=== PATIENT | male | born 1945 | race Caucasian/White ===

== ENCOUNTER 2018-10-30 21:59 | Inpatient (IN) | payer BC, OTHER ==
[2018-10-30] MEDS ORDERED: NA CHLORIDE 0.9% 1,000 ML ONE (22:56)
[2018-10-30] MEDS ORDERED: MORPHINE 4 MG/ML SYR ONE (22:56)
[2018-10-30] MEDS ORDERED: ONDANSETRON 4 MG/2 ML VIAL ONE (22:56)
[2018-10-31] MEDS ORDERED: FENTANYL CITR 100 MCG/2 ML ONE (01:13)
--- NOTE | 2018-10-31 02:07 | ER ---
Nurse's Notes [facility] Name: Trino Joseph Age: 72 yrs Sex: Male : 1945 Arrival Date: 10/30/2018 Time: 22:01 Bed 24 Private MD: Diagnosis: Comminuted intertrochanteric fracture of the proximal right femur Presentation: 10/30 22:10 Presenting complaint: Patient states: He was trying to move something out of the bed of aj1 his truck from the ground and it was heavier than expected so when it came out of the bed it pulled him down to ground, Patient landed on his right hip and has had severe pain and been unable to move his leg since then. Transition of care: patient was not received from another setting of care. Onset of symptoms was October 30, 2018 at 20:30. Risk Assessment: Do you want to hurt yourself or someone else? Patient reports no desire to harm self or others. Initial Sepsis Screen: Does the patient meet any 2 criteria? No. Patient's initial sepsis screen is negative. Does the patient have a suspected source of infection? No. Patient's initial sepsis screen is negative. Care prior to arrival: None. 22:10 Method Of Arrival: Wheelchair aj1 22:10 Acuity: BORIS 3 aj1 23:18 Mechanism of Injury: Fall from standing position. Trauma event details: Injury occurred mg2 in the [facility]. Triage Assessment: 22:13 General: Appears uncomfortable, Behavior is cooperative, restless. Pain: Complains of aj1 pain in right hip Pain currently is 8 out of 10 on a pain scale. Neuro: Level of Consciousness is awake, alert, obeys commands, Oriented to person, place, time, situation. Cardiovascular: Patient's skin is warm and dry. Respiratory: Airway is patent Respiratory effort is even, unlabored, Respiratory pattern is regular, symmetrical. Trauma Activation: Alert Physician: ED Physician; Name: Ish; Notified At: 22:11; Arrived At: 22:11 Physician: General Surgeon; Name: ; Notified At: 22:11; Arrived At: Physician: Radiology; Name: Nilsa Cowart Aracelli; Notified At: 22:11; Arrived At: 22:13 Physician: Respiratory; Name: ; Notified At: 22:11; Arrived At: Physician: Lab; Name: ; Notified At: 22:11; Arrived At: Historical: - Allergies: 22:13 No Known Allergies; aj1 - Home Meds: 22:13 None [Active]; aj1 - PMHx: 22:13 None; aj1 - PSHx: 22:13 pins in spine; elbow surgery; aj1 - Immunization history:: Flu vaccine is not up to date. - Social history:: Smoking status: Patient/guardian denies using tobacco. - Immunization history: Last tetanus immunization: unknown. - Ebola Screening: : Patient denies travel to an Ebola-affected area in the 21 days before illness onset. Screenin:14 Abuse screen: Denies threats or abuse. Denies injuries from another. Nutritional mg2 screening: No deficits noted. Tuberculosis screening: No symptoms or risk factors identified. Fall Risk Fall in past 12 months (25 points). Primary Survey: 23:15 NO uncontrolled hemorrhage observed. A: The patient is alert. A: Airway: patent. mg2 Breathing/Chest: Respiratory pattern: regular, Respiratory effort: spontaneous, unlabored, Breath sounds: clear, bilaterally. in mediastinum, right upper lobe, left upper lobe, right middle lobe, left lower lobe and right lower lobe. Circulation: Skin color: pink. Disability Alert. Exposure/Environment: All clothing and personal items were removed. Forensic evidence collection is not deemed to be indicated at this time. Items placed in patient belonging bag. There is no evidence of uncontrolled external bleeding. No obvious injuries are noted at this time. A warming method has been applied: A warm blanket has been provided to the patient. 10/31 00:10 Reassessment Airway Airway Breathing/Chest Respiratory pattern Regular Respiratory la1 effort Spontaneous Unlabored Circulation Pulses Palpable Color [place] Temperature Warm Disability Alert. 00:54 A: The patient is alert. Airway: patent. Breathing/Chest: Respiratory pattern: regular, la1 Respiratory effort: spontaneous, unlabored, Breath sounds: clear, bilaterally. Circulation: Skin color: pink. Disability Alert. Exposure/Environment: A warming method has been applied: A warm blanket has been provided to the patient. 01:17 Reassessment Airway Airway Breathing/Chest Respiratory pattern Regular Respiratory la1 effort Spontaneous Unlabored Circulation Pulses Palpable Color [place] Temperature Warm Disability Alert. Secondary Survey: 00:10 Musculoskeletal: Reports pain in right hip with severe pain with weight bearing. la1 Assessment: 10/30 22:16 General: Appears uncomfortable, Behavior is anxious. Pain: Complains of pain in right mg2 hip Pain does not radiate. Pain currently is 10 out of 10 on a pain scale. Quality of pain is described as aching. Neuro: Level of Consciousness is awake, alert, obeys commands, Oriented to person, place, time, situation. Cardiovascular: Capillary refill < 3 seconds Patient's skin is warm and dry. Respiratory: Airway is patent Respiratory effort is even, unlabored, Respiratory pattern is regular, symmetrical. GI: No signs and/or symptoms were reported involving the gastrointestinal system. : No signs and/or symptoms were reported regarding the genitourinary system. EENT: No signs and/or symptoms were reported regarding the EENT system. Derm: Skin is intact, is healthy with good turgor, Skin is pink, warm \T\ dry. normal. Musculoskeletal: Circulation, motion, and sensation intact. Capillary refill < 3 seconds, Reports pain in right hip. 23:19 Reassessment: patient sent to [facility] via stretcher. mg2 10/31 03:01 Reassessment: Patient and/or family updated on plan of care and expected duration. Pain bb level reassessed. pt resting quietly states the last pain medication given really worked and his pain is 2/10 at this time. Pt was instructed by EDP on need for admit and surgery for fractured right hip pt verbalized understanding of and agrees to plan of care. Pt is awaiting room assignment. 03:20 Reassessment: report given to Etta ADORNO for room 206. bb Vital Signs: 10/30 22:13 BP 189 / 86; Pulse 56; Resp 28; Pulse Ox 100% on R/A; Weight 111.58 kg (R); Height 6 aj1 ft. 1 in. (185.42 cm) (R); Pain 8/10; 23:04 Temp 98.6(TE); mg2 23:15 BP 134 / 79; Pulse 67; Resp 18; Pulse Ox 100% on R/A; Pain 7/10; mg2 10/31 00:15 BP 136 / 74; Pulse 58; Resp 16; Pulse Ox 98% on R/A; la1 01:11 BP 131 / 82; Pulse 74; Resp 16; Pulse Ox 98% on R/A; la1 02:00 BP 156 / 78; Pulse 71; Resp 16 S; Pulse Ox 96% on R/A; Pain 1/10; bb 03:01 BP 148 / 79; Pulse 74; Resp 16 S; Pulse Ox 95% on R/A; Pain 2/10; bb 10/30 22:13 Body Mass Index 32.46 (111.58 kg, 185.42 cm) aj1 [place] Coma Score: 10/30 23:18 Eye Response: spontaneous(4). Verbal Response: oriented(5). Motor Response: obeys mg2 commands(6). Total: 15. 10/31 00:15 Eye Response: spontaneous(4). Verbal Response: oriented(5). Motor Response: obeys la1 commands(6). Total: 15. Trauma Score (Adult): 10/30 23:17 Eye Response: spontaneous(1); Verbal Response: oriented(1); Motor Response: obeys mg2 commands(2); Systolic BP: > 89 mm Hg(4); Respiratory Rate: 10 to 29 per min(4); [place] Score: 15; Trauma Score: 12 10/31 01:11 Eye Response: spontaneous(1); Verbal Response: oriented(1); Motor Response: obeys la1 commands(2); Systolic BP: > 89 mm Hg(4); Respiratory Rate: 10 to 29 per min(4); [place] Score: 15; Trauma Score: 12 ED Course: 10/30 22:01 Patient arrived in ED. ds1 22:12 Triage completed. aj1 22:13 Reynold Alvarado, RN is Primary Nurse. mg2 22:13 Arm band placed on Patient placed in an exam room. aj1 22:18 No provider procedures requiring assistance completed. mg2 22:19 Patient has correct armband on for positive identification. Pulse ox on. NIBP on. Door mg2 closed. Warm blanket given. 22:45 Hakan Deng MD is Attending Physician. pkl 23:04 Inserted saline lock: 20 gauge in right antecubital area, using aseptic technique. mg2 Blood collected. 23:18 Patient maintains SpO2 saturation greater than 95% on room air. Thermoregulation: warm mg2 blanket given to patient. 10/31 00:34 Hip Right 2 View XRAY In Process Unspecified. EDMS 00:34 Femur Right XRAY In Process Unspecified. EDMS 00:34 XRAY CXR (1 view) In Process Unspecified. EDMS 01:01 CT completed. Patient tolerated procedure well. Patient moved to CT. Patient moved back from CT. 01:15 Hip Right Wo Con In Process Unspecified. EDMS 02:06 Kenan Olivas DO is Hospitalizing Provider. pkl 03:03 Patient admitted, IV remains in place. bb Administered Medications: 10/30 23:03 Drug: morphine 4 mg Route: IVP; Site: right antecubital; mg2 10/31 00:11 Follow up: Response: RASS: Alert and Calm (0) la1 10/30 23:03 Drug: Zofran 4 mg Route: IVP; Site: right antecubital; mg2 10/31 00:11 Follow up: Response: No adverse reaction la1 10/30 23:04 Drug: NS 0.9% 1000 ml Route: IV; Rate: 125 ml/hr; Site: right antecubital; mg2 10/31 03:09 Follow up: IV Status: Infusion continued upon admission bb 01:18 Drug: fentaNYL (PF) 50 mcg {Note: RASS-0.} Route: IVP; Site: right antecubital; la1 Intake: 10/30 23:18 PO: 0ml; Total: 0ml. mg2 Outcome: 10/31 02:07 Decision to Hospitalize by Provider. pkl 02:57 Condition: stable bb 02:57 Instructed on the need for admit. 03:03 Admitted to Med/surg accompanied by [facility], via stretcher, room 206, with chart, Report bb called to receiving RN 03:05 Patient's length of stay in the Emergency Department was greater than 2 hours. bb 03:50 Patient left the ED. bb Signatures: Dispatcher [employer] Suzette Archibald, RN RN Hakan Bauer MD MD pkl Hagler, Ervin eh Sanford, Demi ds1 Olga Lidia Oropeza RN RN bb Attema, Lee, RN RN la1 Reynold Alvarado RN RN mg2
--- NOTE | 2018-10-31 02:07 | EDPHYS ---
Physician Documentation [facility] Name: Trino Joseph Age: 72 yrs Sex: Male : 1945 Arrival Date: 10/30/2018 Time: 22:01 Bed 24 Private MD: ED Physician Hakan Deng HPI: 10/30 23:06 This 72 yrs old Male presents to ER via Wheelchair with complaints of Hip pkl Pain. 23:06 The patient or guardian reports decreased range of motion, deformity, an injury, pain, pkl swelling. sustained from a fall, from a standing position. The complaints affect the right hip. Onset: The symptoms/episode began/occurred just prior to arrival. Associated signs and symptoms: Loss of consciousness: the patient experienced loss of consciousness. Historical: - Allergies: 22:13 No Known Allergies; aj1 - Home Meds: 22:13 None [Active]; aj1 - PMHx: 22:13 None; aj1 - PSHx: 22:13 pins in spine; elbow surgery; aj1 - Immunization history:: Flu vaccine is not up to date. - Social history:: Smoking status: Patient/guardian denies using tobacco. - Immunization history: Last tetanus immunization: unknown. - Ebola Screening: : Patient denies travel to an Ebola-affected area in the 21 days before illness onset. ROS: 23:06 Eyes: Negative for injury, pain, redness, and discharge, ENT: Negative for injury, pkl pain, and discharge, Neck: Negative for injury, pain, and swelling, Cardiovascular: Negative for chest pain, palpitations, and edema, Respiratory: Negative for shortness of breath, cough, wheezing, and pleuritic chest pain, Abdomen/GI: Negative for abdominal pain, nausea, vomiting, diarrhea, and constipation, Back: Negative for injury and pain, : Negative for injury, bleeding, discharge, and swelling, Skin: Negative for injury, rash, and discoloration, Neuro: Negative for headache, weakness, numbness, tingling, and seizure. 23:06 MS/extremity: Positive for injury or acute deformity, contusion, pain, tenderness, of the right hip. Exam: 23:06 Head/Face: Normocephalic, atraumatic. Eyes: Pupils equal round and reactive to light, pkl extra-ocular motions intact. Lids and lashes normal. Conjunctiva and sclera are non-icteric and not injected. Cornea within normal limits. Periorbital areas with no swelling, redness, or edema. ENT: Nares patent. No nasal discharge, no septal abnormalities noted. Tympanic membranes are normal and external auditory canals are clear. Oropharynx with no redness, swelling, or masses, exudates, or evidence of obstruction, uvula midline. Mucous membranes moist. Neck: Trachea midline, no thyromegaly or masses palpated, and no cervical lymphadenopathy. Supple, full range of motion without nuchal rigidity, or vertebral point tenderness. No Meningismus. Chest/axilla: Normal chest wall appearance and motion. Nontender with no deformity. No lesions are appreciated. Cardiovascular: Regular rate and rhythm with a normal S1 and S2. No gallops, murmurs, or rubs. Normal PMI, no JVD. No pulse deficits. Respiratory: Lungs have equal breath sounds bilaterally, clear to auscultation and percussion. No rales, rhonchi or wheezes noted. No increased work of breathing, no retractions or nasal flaring. Abdomen/GI: Soft, non-tender, with normal bowel sounds. No distension or tympany. No guarding or rebound. No evidence of tenderness throughout. Back: No spinal tenderness. No costovertebral tenderness. Full range of motion. Skin: Warm, dry with normal turgor. Normal color with no rashes, no lesions, and no evidence of cellulitis. 23:06 Musculoskeletal/extremity: Extremities: grossly normal except: noted in the right hip: decreased ROM, deformity, pain, tenderness. 23:06 Neuro: Orientation: is normal, Mentation: is normal, Cranial nerves: grossly normal, Motor: is normal. Vital Signs: 22:13 BP 189 / 86; Pulse 56; Resp 28; Pulse Ox 100% on R/A; Weight 111.58 kg (R); Height 6 aj1 ft. 1 in. (185.42 cm) (R); Pain 8/10; 23:04 Temp 98.6(TE); mg2 23:15 BP 134 / 79; Pulse 67; Resp 18; Pulse Ox 100% on R/A; Pain 7/10; mg2 08/10 00:15 BP 136 / 74; Pulse 58; Resp 16; Pulse Ox 98% on R/A; la1 01:11 BP 131 / 82; Pulse 74; Resp 16; Pulse Ox 98% on R/A; la1 02:00 BP 156 / 78; Pulse 71; Resp 16 S; Pulse Ox 96% on R/A; Pain 1/10; bb 03:01 BP 148 / 79; Pulse 74; Resp 16 S; Pulse Ox 95% on R/A; Pain 2/10; bb 10/30 22:13 Body Mass Index 32.46 (111.58 kg, 185.42 cm) aj1 [place] Coma Score: 10/30 23:18 Eye Response: spontaneous(4). Verbal Response: oriented(5). Motor Response: obeys mg2 commands(6). Total: 15. 10/31 00:15 Eye Response: spontaneous(4). Verbal Response: oriented(5). Motor Response: obeys la1 commands(6). Total: 15. Trauma Score (Adult): 10/30 23:17 Eye Response: spontaneous(1); Verbal Response: oriented(1); Motor Response: obeys mg2 commands(2); Systolic BP: > 89 mm Hg(4); Respiratory Rate: 10 to 29 per min(4); [place] Score: 15; Trauma Score: 12 10/31 01:11 Eye Response: spontaneous(1); Verbal Response: oriented(1); Motor Response: obeys la1 commands(2); Systolic BP: > 89 mm Hg(4); Respiratory Rate: 10 to 29 per min(4); [place] Score: 15; Trauma Score: 12 MDM: 10/30 22:45 Patient medically screened. pkl 10/31 02:04 Data reviewed: vital signs, nurses notes, lab test result(s), EKG, radiologic studies, pkl CT scan, plain films. 10/31 01:59 Order name: Basic Metabolic Panel pkl 10/31 01:59 Order name: CBC with Diff pkl 10/31 01:59 Order name: LFT's pkl 10/31 01:59 Order name: Magnesium; Complete Time: 03:54 pkl 10/31 01:59 Order name: NT PRO-BNP; Complete Time: 03:54 pkl 10/31 01:59 Order name: PT-INR; Complete Time: 03:18 pkl 10/30 22:49 Order name: Hip Right 2 View XRAY pkl 10/30 22:49 Order name: Femur Right XRAY pkl 10/30 22:49 Order name: XRAY CXR (1 view) pkl 10/31 00:24 Order name: Hip Right Wo Con EDMS 10/31 01:59 Order name: Troponin (emerg Dept Use Only); Complete Time: 03:54 pkl 10/31 02:01 Order name: Basic Metabolic Panel; Complete Time: 03:54 EDMS 10/31 02:01 Order name: CBC with Automated Diff; Complete Time: 03:54 EDMS 10/31 02:01 Order name: Liver (Hepatic) Function; Complete Time: 03:54 EDMS 10/31 01:59 Order name: EKG; Complete Time: 02:02 pkl 10/31 01:59 Order name: Cardiac monitoring; Complete Time: 02:08 pkl 10/31 01:59 Order name: EKG - Nurse/Tech; Complete Time: 02:55 pkl 10/31 01:59 Order name: IV Saline Lock; Complete Time: 02:08 pkl 10/31 01:59 Order name: Labs collected and sent; Complete Time: 02:55 pkl 10/31 01:59 Order name: O2 Per Protocol; Complete Time: 02:08 pkl 10/31 01:59 Order name: O2 Sat Monitoring; Complete Time: 02:08 pkl Administered Medications: 10/30 23:03 Drug: morphine 4 mg Route: IVP; Site: right antecubital; mg2 10/31 00:11 Follow up: Response: RASS: Alert and Calm (0) la1 10/30 23:03 Drug: Zofran 4 mg Route: IVP; Site: right antecubital; mg2 10/31 00:11 Follow up: Response: No adverse reaction la1 10/30 23:04 Drug: NS 0.9% 1000 ml Route: IV; Rate: 125 ml/hr; Site: right antecubital; mg2 10/31 03:09 Follow up: IV Status: Infusion continued upon admission bb 01:18 Drug: fentaNYL (PF) 50 mcg {Note: RASS-0.} Route: IVP; Site: right antecubital; la1 Disposition: 10/31/18 02:07 Hospitalization ordered by Kenan Olivas for Inpatient Admission. Preliminary diagnosis is Comminuted intertrochanteric fracture of the proximal right femur. - Bed requested for Telemetry/MedSurg (Inpatient). - Status is Inpatient Admission. bb - Condition is Stable. - Problem is new. - Symptoms are unchanged. UTI on Admission? No Signatures: Dispatcher [employer] EDSuzette Rausch, RN RN aj1 Hakan Deng MD MD pkl Olga Lidia Oropeza RN RN bb Devin Phillip RN RN la1 Laquita Rodas RN RN Reynold Alvarado RN RN mg2 Corrections: (The following items were deleted from the chart) 02:32 02:07 Hospitalization Ordered by Kenan Olivas DO for Inpatient Admission. Preliminary cg diagnosis is Comminuted intertrochanteric fracture of the proximal right femur. Bed requested for Telemetry/MedSurg (Inpatient). Status is Inpatient Admission. Condition is Stable. Problem is new. Symptoms are unchanged. UTI on Admission? No. pkl 03:50 02:32 10/31/2018 02:07 Hospitalization Ordered by Kenan Olivas DO for Inpatient bb Admission. Preliminary diagnosis is Comminuted intertrochanteric fracture of the proximal right femur. Bed requested for Telemetry/MedSurg (Inpatient). Status is Inpatient Admission. Condition is Stable. Problem is new. Symptoms are unchanged. UTI on Admission? No. cg
--- NOTE | 2018-10-31 02:36 | P.HP ---
Certification for Inpatient Patient admitted to: Inpatient With expected LOS: >2 Midnights Patient will require the following post-hospital care: Home Health Services Practitioner: I am a practitioner with admitting privileges, knowledge of patient current condition, hospital course, and medical plan of care. Services: Services provided to patient in accordance with Admission requirements found in Title 42 Section 412.3 of the Code of Federal Regulations Patient History Date of Service: 10/31/18 Primary Care Provider: Dr. Moya([place], [place]) Reason for admission: Right hip pain History of Present Illness: 72-year-old male presented to the emergency room with right hip pain. The patient was removing a heavy large object out of his truck. When he removed the object off of the truck he did not realize how heavy it was. He was able to get out of the way upon removing the object but fell to the right hip hard on the ground. He immediately had pain to the right hip. He was not able to mobilize after the fall. He rated the pain about 10/10. He was not able to get up. At that point he understood something was wrong. He was brought to the ER for further evaluation. In the ER patient evaluated. CT of the lower extremity showed mild displaced comminuted intertrochanteric proximal right femur fracture. Lab-CBC, BMP, PT INR pending. EKG unremarkable. Patient will be admitted for further evaluation and treatment. ER physician discussed the case with orthopedics who plans surgical intervention today. When I saw the patient ER, he appeared comfortable. Pain better controlled. Patient denies any major medical problems. He does not take any medication on a regular basis. Allergies No Known Allergies Allergy (Unverified 10/31/18 00:15) Home medications list reviewed: No - Past Medical/Surgical History Diabetic: No Past Medical History: Patient denies medical history -: Hernia repair -: Tonsillectomy -: Back surgery -: Left hand and foot surgery Psychosocial/ Personal History: Patient is , lives at home. - Family History Family History: Reviewed- Non-Contributory - Social History Smoking Status: Former smoker Alcohol use: No CD- Drugs: No Caffeine use: Yes Place of Residence: Home Review of Systems General: Unremarkable Eyes: Unremarkable ENT: Unremarkable Respiratory: Unremarkable Cardiovascular: Unremarkable Gastrointestinal: Unremarkable Genitourinary: Unremarkable Musculoskeletal: Leg Pain, As per HPI Integumentary: Unremarkable Neurological: Unremarkable Lymphatics: Unremarkable Physical Examination - Physical Exam General: Alert, In no apparent distress, Oriented x3, Cooperative HEENT: Atraumatic, Normocephalic, PERRLA, Mucous membr. moist/pink Neck: Supple, No Thyromegaly Respiratory: Clear to auscultation bilaterally, Normal air movement Cardiovascular: Normal pulses, Regular rate/rhythm Gastrointestinal: Normal bowel sounds, Soft and benign, Non-distended, No ascites, No tenderness, No masses, No rebound, No guarding Musculoskeletal: No warmth, Tenderness (Pain to the right hip noted. Lower extremity externally rotated. Pulses good distally.) Integumentary: No rashes, No breakdown, No erythema, No warmth, No cyanosis Neurological: Normal speech, Normal strength at 5/5 x4 extr, Normal tone, Normal affect Assessment and Plan - Plan Impression: Mildly displaced comminuted intertrochanteric proximal right femur fracture Plan: Patient be admitted for further evaluation and treatment. ER physician discussed case with orthopedics. Surgical intervention planned today. Lab-CBC , BMP pending at this time. Will hold off on DVT prophylaxis as surgical intervention is planned. Will provide medication for pain. Patient without any major medical problems. Patient appears medically stable to proceed with surgery. Anticipate likely discharge in the next 3-5 days pending clinical improvement postoperatively. Daytime hospital team will continue his care along with orthopedics. Discharge Plan: Home (likely with home health/physical therapy) Plan to discharge in: Greater than 2 days - Advance Directives Does patient have a Living Will: No Does patient have a Durable POA for Healthcare: No - Code Status/Comfort Care Code Status Assessed: Yes (Patient is full code) Time Spent Managing Pts Care (In Minutes): 55
[2018-10-31 03:13] LABS: Protime INR 1.13
[2018-10-31 03:15] LABS: Basophils % 0.2 % (0-1.3)
[2018-10-31 03:24] LABS: Absolute Lymphocytes (CBC) 0.8 K/uL (0.7-4.9); Lymphocytes % 7.5 % (15.3-44.8); RBC Red Blood Cell Count 4.39 M/uL (4.33-5.43)
[2018-10-31 03:36] LABS: ALT/SGPT 36 U/L (12-78); AST/SGOT 21 U/L (15-37); Alkaline Phosphatase 50 U/L (45-117); BUN Blood Urea Nitrogen 10 mg/dL (7-18); Bicarbonate 25 mmol/L (21-32); Bilirubin Direct 0.4 mg/dL (0-0.2); Bilirubin Total 1.2 mg/dL (0.2-1.0); Glucose Level 210 mg/dL (74-106); Magnesium 2.1 mg/dL (1.8-2.4); NT PRO-BNP 144 pg/mL (<125); Potassium 3.9 mmol/L (3.5-5.1); Protein, Total 7.1 g/dL (6.4-8.2); Sodium Level 138 mmol/L (136-145); Troponin (Emerg Dept Use Only) < 0.02 ng/mL (0.0-0.045)
[2018-10-31 03:39] LABS: Urine White Blood Cell Casts OK
[2018-10-31 03:40] LABS: Blood Morphology Comment NOT SEEN (NOT SEEN); Platelet Estimate ADEQ
[2018-10-31] MEDS ORDERED: ACETAMINOPHEN 650MG/RECT SUPP RECT PRN (03:44)
[2018-10-31] MEDS ORDERED: ACETAMINOPHEN 500 MG TAB PO PRN (03:44)
[2018-10-31] MEDS: MORPHINE 2 MG/ML SYR IV PRN ×2 (04:50→09:35)
[2018-10-31] MEDS ORDERED: D50W 25 GM/50 ML SYRINGE IV PRN (06:16)
[2018-10-31] MEDS ORDERED: GLUCAGON 1 MG/VIAL IM PRN (06:16)
[2018-10-31] MEDS: INSULIN -REGULAR HUMAN 50 UNIT/0.5 ML ML SQ SCH ×5 (07:30→21:00)
--- NOTE | 2018-10-31 07:36 | EKG ---
Test Date: 2018-10-31 Test Time: 02:23:55 Finishing Frame Runner: FABBY MEASUREMENT RESULTS: Intervals: Rate: 78 CO: 190 QRSD: 108 QT: 400 QTc: 456 [place]: P: 67 CO: 190 QRS: 15 T: 50 INTERPRETIVE STATEMENTS: Sinus rhythm with premature atrial complexes Otherwise normal ECG No previous ECG available for comparison Electronically Signed On 10-31-18 07:35:58 CDT by Bart Carlson
[2018-10-31] MEDS ORDERED: CEFAZOLIN/SWI 1gm 1 GM/10 ML SYR ONE (10:31)
[2018-10-31] MEDS ORDERED: NA CHLORIDE 0.9% 1,000 ML ONE ×2 (10:34→12:59)
[2018-10-31] MEDS ORDERED: SUCCINYLCHOLINE 20 MG/ML (10 ML) IV ONE (10:40)
[2018-10-31] MEDS ORDERED: PROPOFOL 200 MG/20 ML VIAL IV ONE (10:47)
[2018-10-31] MEDS ORDERED: ROCURONIUM 50 MG/5 ML VIAL IV ONE (10:48)
[2018-10-31] MEDS ORDERED: FENTANYL CITR 250 MCG/5 ML ONE (10:48)
[2018-10-31] MEDS ORDERED: MIDAZOLAM HCL 2 MG/2 ML INJ ONE (10:48)
[2018-10-31] MEDS ORDERED: TRANEXAMIC ACID 1,000 MG in NA CHLORIDE 0.9% 50 ML IV ONE (11:00)
--- NOTE | 2018-10-31 12:26 | RAD REPORT ---
EXAM DESCRIPTION: RAD - Femur Right - 10/31/2018 12:30 am CLINICAL HISTORY: fall Fall, pain COMPARISON: Hip Right 2 View dated 10/30/2018; Hip Right Wo Con dated 10/31/2018 FINDINGS: Right hip and right femur- multiple projections are submitted Intratrochanteric fracture is seen involving the proximal right femur. No dislocation evident.
--- NOTE | 2018-10-31 12:27 | RAD REPORT ---
EXAM DESCRIPTION: RAD - Chest Single View - 10/31/2018 12:30 am CLINICAL HISTORY: fall Chest pain. COMPARISON: No comparisons FINDINGS: Portable technique limits examination quality. The lungs are grossly clear. The heart is normal in size. Tortuous thoracic aorta noted. No displaced fractures. IMPRESSION: No acute intrathoracic process suspected.
[2018-10-31] MEDS ORDERED: GLYCOPYRROLATE 0.2 MG/ML SYR ONE (12:38)
[2018-10-31] MEDS ORDERED: NEOSTIGMINE 1 MG/ML -10 ML VIAL ONE (12:38)
[2018-10-31] MEDS: MEPERIDINE HCL 50 MG/ML AMP ONE ×2 (12:49→12:54)
[2018-10-31] MEDS ORDERED: ONDANSETRON 4 MG/2 ML VIAL ONE (12:57)
--- NOTE | 2018-10-31 13:19 | RAD REPORT ---
EXAM DESCRIPTION: RAD - Hip In Or - 10/31/2018 12:58 pm CLINICAL HISTORY: RIGHT HIP DONE IN OR 4 WITH DOCTOR SANDOVAL COMPARISON: No comparisons FINDINGS: Fluoroscopy time 1.8 minutes.
[2018-10-31] MEDS: HYDROMORPHONE HCL 2 MG/ML inj ONE ×4 (13:21→13:38)
--- NOTE | 2018-10-31 13:21 | P.BOP ---
Preoperative diagnosis: CLOSED, DISPLACED INTERTROCHANTERIC RIGHT HIP FRACTURE Postoperative diagnosis: CLOSED, DISPLACED INTERTROCHANTERIC RIGHT HIP FRACTURE Primary procedure: INSERTION OF IM NAIL RIGHT HIP IT FRACTURE Estimated blood loss: 250mm Specimen: NONE Findings: IT FRACTURE RIGHT HIP Anesthesia: General Complications: None Implants: AFFIXUS 130*30I167pm;LAG SCREW10.5X115;AR [id number];DISTAL SCREW 5.1E178wb Transferred to: Recovery Room Condition: Good
[2018-10-31 13:26] LABS: Hematocrit 39.1 % (39.6-49.0)
[2018-10-31] MEDS ORDERED: HYDROCODONE/APAP 7.5/325 MG TAB PO PRN (13:36)
--- NOTE | 2018-10-31 14:31 | P.CNS ---
Date of Consult: 10/31/18 Reason for Consult: FRACTURE RIGHT HIP Primary Care Provider: Dr. Moya([place], [place]) Chief Complaint: Right hip pain History of Present Illness: PATIENT WRESTLING WITH HEAVY OBJECT IN BACK OF PICKUP WHEN HE FELL BACKWARDS TO IMPACT RIGHT HIP. Allergies No Known Allergies Allergy (Verified 10/31/18 03:45) Home Medications: NK [No Home Meds] 10/31/18 - Past Medical/Surgical History Diabetic: No -: Hernia repair -: Tonsillectomy -: Back surgery -: Left hand and foot surgery Psychosocial/ Personal History: Patient is , lives at home. - Social History Alcohol use: No CD- Drugs: No Caffeine use: Yes Place of Residence: Home Review of Systems 10-point ROS is otherwise unremarkable Physical Examination Temp Pulse Resp BP Pulse Ox 97.4 F 69 16 163/81 H 94 10/31/18 13:39 10/31/18 13:39 10/31/18 13:39 10/31/18 13:39 10/31/18 09:35 General: Alert, Oriented x3, Mild distress HEENT: Atraumatic, Normocephalic Neck: Supple Respiratory: Clear to auscultation bilaterally, Normal air movement Cardiovascular: Normal pulses Capillary refill: Brisk Gastrointestinal: Normal bowel sounds, Soft and benign, Non-distended Musculoskeletal: Tenderness (RIGHT HIP PAIN WITH ANY MOVEMENT), Other (EXTERNAL ROTATION RLE) Integumentary: No rashes, No breakdown, No significant lesion Neurological: Normal speech, Sensation intact, Normal affect External genitalia: Deferred Rectal: Deferred WBCs 11.3, NEUTs 87%, HGB 14.3, INR 1.13, GFR 60 Imagings Data: CT SCAN RIGHT HIP SHOWS DISPLACED PROXIMAL FEMUR IT FRACTURE RIGHT HIP - Problems (1) Closed intertrochanteric fracture of right hip Current Visit: Yes Status: Acute Qualifiers: Encounter type: initial encounter Fracture alignment: displaced Qualified Code(s): S72.141A - Displaced intertrochanteric fracture of right femur, initial encounter for closed fracture Conclusions/Impression: PATIENT IN GOOD HEALTH AND VERY ACTIVE IN [place] FELL WITH DISPLACED RIGHT HIP IT FRACTURE. PLAN: NPO, MED. CLEARANCE AND IM NAIL FIXATION RIGHT HIP FRACTURE
[2018-10-31] MEDS: MORPHINE 4 MG/ML SYR IV PRN (15:58)
[2018-10-31] MEDS: CEFAZOLIN/SWI 1gm 1 GM/10 ML SYR IV SCH ×2 (16:59→23:58)
[2018-10-31 22:42] LABS: Urine Appearance CLEAR; Urine Bilirubin NEGATIVE (NEG); Urine Blood NEGATIVE (NEG); Urine Color DK YELLOW; Urine Glucose 3+ (NEG); Urine Protein NEGATIVE (NEG); Urine Specific Gravity 1.015 (1.005-1.030); Urine pH 5.5 (5.0-7.0)
[2018-10-31 22:44] LABS: Urine Microscopic Reflex NO UMIC
[2018-11-01 00:29] LABS: Urine Appearance CLEAR; Urine Bilirubin NEGATIVE (NEG); Urine Blood NEGATIVE (NEG); Urine Color YELLOW; Urine Glucose 3+ (NEG); Urine Protein NEGATIVE (NEG)
[2018-11-01 00:30] LABS: Urine Microscopic Reflex NO UMIC
[2018-11-01] MEDS: ONDANSETRON 4 MG/2 ML VIAL IV PRN ×2 (02:16→09:01)
[2018-11-01 05:14] LABS: Absolute Lymphocytes (CBC) 0.8 K/uL (0.7-4.9); Basophils % 0.4 % (0-1.3); Hematocrit 38.4 % (39.6-49.0); Lymphocytes % 8.3 % (15.3-44.8); MPV 9.5 fL (7.6-11.3); RBC Red Blood Cell Count 4.16 M/uL (4.33-5.43)
[2018-11-01 05:21] LABS: Magnesium 2.2 mg/dL (1.8-2.4)
[2018-11-01] MEDS: INSULIN -REGULAR HUMAN 50 UNIT/0.5 ML ML SQ SCH ×4 (08:58→20:59)
[2018-11-01] MEDS: ENOXAPARIN 40 MG/0.4 ML SQ SCH (09:00)
[2018-11-01] MEDS: MORPHINE 4 MG/ML SYR IV PRN (09:11)
--- NOTE | 2018-11-01 11:33 | P.PN ---
Subjective Date of Service: 11/01/18 Primary Care Provider: Dr. Moya([place], [place]) Chief Complaint: Right hip pain Subjective: No C/O voiced, Tolerating diet, Ambulating, Improving, Working w/ PT , Doing well Review of Systems 10-point ROS is otherwise unremarkable Physical Examination - Vital Signs Temperature: 98.5 F Blood Pressure: 158/76 Pulse: 73 Respirations: 20 Pulse Ox (%): 97 - Physical Exam General: Alert, In no apparent distress HEENT: Atraumatic, PERRLA, EOMI Neck: Supple, JVD not distended Respiratory: Clear to auscultation bilaterally, Normal air movement Cardiovascular: Regular rate/rhythm, Normal S1 S2 Gastrointestinal: Normal bowel sounds, No tenderness Musculoskeletal: No tenderness Integumentary: No rashes Neurological: Normal speech, Normal tone, Normal affect Lymphatics: No axilla or inguinal lymphadenopathy - Studies Medications List Reviewed: Yes Assessment And Plan - Current Problems (Diagnosis) (1) Closed intertrochanteric fracture of right hip Current Visit: Yes Status: Acute Plan: Right Closed Hip Fracture -Orthopedics Consulted. Reccs appreciated -S/P ORIF POD # 1 -PT.OT consulted. Awaiting Reccs Qualifiers: Encounter type: initial encounter Fracture alignment: displaced Qualified Code(s): S72.141A - Displaced intertrochanteric fracture of right femur, initial encounter for closed fracture - Plan Pending clinical Improvement Discharge Plan: Other Plan to discharge in: Greater than 2 days - Code Status/Comfort Care Code Status Assessed: Yes Critical Care: No
--- NOTE | 2018-11-01 12:59 | P.PN ---
Date of Service: 11/01/18 (POD#1) S: Patient found sitting in bedside chair after session with physical therapy got him into the hallway and back in his first session. Patient indicates he is thrilled with his level of mobility with little or no pain compared to yesterday s experience of intense pain with minor movements. O: VSS, Afebrile, hemoglobin 13.3 yesterday post op, 13.6 this morning. WBC 10.1, Neut 84%. Bandage clean dry and intact. Neurovascular exam intact. A: POD#1 showing excellent progress. P: Continue mobilization as tolerated. Expect patient to go home with home health or directly to outpatient therapy depending on progress over the next 48 hours.
--- NOTE | 2018-11-01 15:04 | RAD REPORT ---
EXAM DESCRIPTION: RAD - Abdomen 1 View (KUB) - 11/01/2018 2:01 pm CLINICAL HISTORY: Abdominal pain, vomiting COMPARISON: CT right hip October 31 FINDINGS: Bowel gas pattern is non-specific. No bowel obstruction suspected. Prominent air-filled a nd redundant sigmoid colon is seen. Moderate stool volume in the descending colon. A few prominent bu t nondilated small bowel loops are present. No suspicious calcifications. Surgical rods are in place across the thoracolumbar junction. New hardware in the proximal right femu r. IMPRESSION: No bowel obstruction or free air. Bowel gas pattern is nonspecific but could reflect a mild ileus.
[2018-11-02 06:21] LABS: Magnesium 2.4 mg/dL (1.8-2.4); Potassium 3.9 mmol/L (3.5-5.1)
[2018-11-02 06:29] LABS: Basophils % 0.4 % (0-1.3); Hematocrit 37.9 % (39.6-49.0); Lymphocytes % 10.2 % (15.3-44.8); MPV 9.6 fL (7.6-11.3)
[2018-11-02] MEDS: INSULIN -REGULAR HUMAN 50 UNIT/0.5 ML ML SQ SCH ×4 (07:30→21:02)
[2018-11-02] MEDS ORDERED: POTASSIUM 25 MEQ EFFERV TAB PO ONE (09:00)
--- NOTE | 2018-11-02 09:31 | RAD REPORT ---
EXAM DESCRIPTION: RAD - Hip Right 2 View - 10/31/2018 12:30 am CLINICAL HISTORY: Fall Fall, pain COMPARISON: Hip Right 2 View dated 10/30/2018; Hip Right Wo Con dated 10/31/2018 FINDINGS: Right hip and right femur- multiple projections are submitted Intratrochanteric fracture is seen involving the proximal right femur. No dislocation evident.
[2018-11-02] MEDS: ENOXAPARIN 40 MG/0.4 ML SQ SCH (09:35)
--- NOTE | 2018-11-02 11:30 | P.PN ---
Subjective Date of Service: 11/02/18 Primary Care Provider: Dr. Moya([place], [place]) Chief Complaint: Right hip pain Subjective: Improving Patient seen and examined at bedside. No family at bedside. Chart reviewed and case discussed with nursing staff. Reports improved pain. Working well with physical therapy. No acute events noted overnight. No complaints this morning Review of Systems 10-point ROS is otherwise unremarkable Physical Examination - Vital Signs Temperature: 99 F Blood Pressure: 180/88 Pulse: 82 Respirations: 18 Pulse Ox (%): 94 - Physical Exam General: Alert, In no apparent distress, Oriented x3 HEENT: Atraumatic, PERRLA, EOMI Neck: Supple, JVD not distended Respiratory: Clear to auscultation bilaterally, Normal air movement Cardiovascular: Regular rate/rhythm, Normal S1 S2 Gastrointestinal: Normal bowel sounds, No tenderness Musculoskeletal: No tenderness Integumentary: No rashes Neurological: Normal speech, Normal tone, Normal affect Lymphatics: No axilla or inguinal lymphadenopathy - Studies Medications List Reviewed: Yes Assessment And Plan - Current Problems (Diagnosis) (1) Closed intertrochanteric fracture of right hip Current Visit: Yes Status: Acute Plan: Right Closed Hip Fracture -Orthopedics Consulted. Recommendations appreciated -S/P ORIF POD # 21 -PT/OT consulted. Recommendations appreciated Qualifiers: Encounter type: initial encounter Fracture alignment: displaced Qualified Code(s): S72.141A - Displaced intertrochanteric fracture of right femur, initial encounter for closed fracture - Plan DVT prophylaxis: Lovenox GI prophylaxis: Not needed Diet: Regular Disposition: Pending symptomatic improvement. Social work on board for discharge planning. Pending rehab consult
--- NOTE | 2018-11-02 13:03 | RAD REPORT ---
EXAM DESCRIPTION: CT head without IV contrast CLINICAL HISTORY: 72-year-old male with right hip pain CLINICAL HISTORY: Axial CT imaging of the right hip was performed without intravenous contrast. Sa gittal and coronal reconstructed images were then performed. The CT study is performed according to A GIBRAN (as low as reasonably achievable) or ALARA/IMAGE GENTLY, with automatic adjustment of mA and/or kV according to patient size. Performed on: 10/31/2018 at 1:03 AM COMPARISON: None FINDINGS: Bones: There is a mildly displaced and mildly comminuted intertrochanteric fracture of the proximal right femur. Bone mineralization is normal. There are mild hypertrophic changes of the acet abulum and greater trochanter. No pathologic lytic or sclerotic bone lesions are identified. No signi ficant hip joint narrowing is noted. Soft tissues: There is minimal soft tissue swelling surrounding the right hip. No definite joint ef fusion is identified. Arterial vascular calcifications are noted. The soft tissue structures within the pelvis are grossly unremarkable. There are chronic calcifications within the prostate gland. IMPRESSION: 1. Mildly displaced and mildly comminuted intertrochanteric fracture of the proximal rig ht femur. There is minimal surrounding soft tissue swelling. 2. Mild degenerative changes of the right hip. Electronically signed by: Anitra Johns DO 10/31/2018 1:39 AM CDT Due to temporary technical issues with the PACS/Fluency reporting system, reports are being signed by the in house radiologist as a courtesy to ensure prompt reporting. The interpreting radiologist is f ully responsible for the content of the report.
--- NOTE | 2018-11-02 16:18 | P.PN ---
Date of Service: 11/02/18 S: Patient found sitting in bedside chair after 250' RW walk with physical therapy in the hallway. Patient indicates he is having less pain compared to yesterdays workout with physical therapy. O: VSS, Afebrile, hemoglobin 13.6 yesterday, stable at 13.7 this morning. WBC 10.0, Neut 82%. Bandage clean dry and intact. Neurovascular exam intact. A: POD#2 showing excellent progress. P: Continue mobilization as tolerated. 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
[2018-11-03 04:26] LABS: Absolute Lymphocytes (CBC) 1.4 K/uL (0.7-4.9); Basophils % 0.8 % (0-1.3); Hematocrit 37.4 % (39.6-49.0); Lymphocytes % 16.3 % (15.3-44.8); MPV 9.1 fL (7.6-11.3); RBC Red Blood Cell Count 4.07 M/uL (4.33-5.43)
[2018-11-03 04:44] LABS: Magnesium 2.4 mg/dL (1.8-2.4)
[2018-11-03] MEDS: INSULIN -REGULAR HUMAN 50 UNIT/0.5 ML ML SQ SCH ×4 (07:30→21:00)
[2018-11-03] MEDS: ENOXAPARIN 40 MG/0.4 ML SQ SCH (08:13)
--- NOTE | 2018-11-03 11:48 | P.PN ---
Date of Service: 11/03/18 S: Patient sitting in bedside chair working with occupational therapy this morning. He continues to be highly motivated for a speedy recovery. O: VSS, Afebrile, hemoglobin 13.3 this morning. WBC 8.8, Neut 72%. Bandage clean dry and intact. Neurovascular exam intact. A: POD#3 showing excellent progress, minimal complaints. P: Continue mobilization as tolerated. Patient being considered for inpatient rehabilitation.
--- NOTE | 2018-11-03 12:35 | P.PN ---
Subjective Date of Service: 11/03/18 Primary Care Provider: Dr. Moya([place], [place]) Chief Complaint: Right hip pain Subjective: Improving, Working w/ PT Patient seen and examined at bedside. No family at bedside. Chart reviewed and case discussed with nursing staff. Reports improved pain. Working well with physical therapy. No acute events noted overnight. No complaints this morning Review of Systems 10-point ROS is otherwise unremarkable Physical Examination - Vital Signs Temperature: 98.1 F Blood Pressure: 125/72 Pulse: 90 Respirations: 16 Pulse Ox (%): 96 - Physical Exam General: Alert, In no apparent distress, Oriented x3 HEENT: Atraumatic, PERRLA, EOMI Neck: Supple, JVD not distended Respiratory: Clear to auscultation bilaterally, Normal air movement Cardiovascular: Regular rate/rhythm, Normal S1 S2 Gastrointestinal: Normal bowel sounds, No tenderness Musculoskeletal: No tenderness Integumentary: No rashes Neurological: Normal speech, Normal tone, Normal affect Lymphatics: No axilla or inguinal lymphadenopathy - Studies Medications List Reviewed: Yes Assessment And Plan - Current Problems (Diagnosis) (1) Closed intertrochanteric fracture of right hip Current Visit: Yes Status: Acute Plan: Right Closed Hip Fracture -Orthopedics Consulted. Recommendations appreciated -S/P ORIF POD # 3 -PT/OT consulted. Recommendations appreciated Qualifiers: Encounter type: initial encounter Fracture alignment: displaced Qualified Code(s): S72.141A - Displaced intertrochanteric fracture of right femur, initial encounter for closed fracture - Plan DVT prophylaxis: Lovenox GI prophylaxis: Not needed Diet: Regular Disposition: Pending symptomatic improvement. Social work on board for discharge planning. Pending rehab consult
[2018-11-04 05:53] LABS: Hematocrit 35.9 % (39.6-49.0)
[2018-11-04] MEDS: INSULIN -REGULAR HUMAN 50 UNIT/0.5 ML ML SQ SCH ×2 (07:30→11:30)
[2018-11-04] MEDS: ENOXAPARIN 40 MG/0.4 ML SQ SCH (08:00)
--- NOTE | 2018-11-04 11:40 | P.DS ---
Admission Date: 10/31/18 Discharge Date: 11/04/18 Primary Care Provider: Dr. Moya([place], [place]) Disposition: TRANSFER TO INPATIENT REHAB Discharge Condition: GOOD Reason for Admission: Right hip pain Consultations: Orthopedics Surgery Procedures: ORIF 10/31/2018 - Problems (1) Closed intertrochanteric fracture of right hip Current Visit: Yes Status: Acute Qualifiers: Encounter type: initial encounter Fracture alignment: displaced Qualified Code(s): S72.141A - Displaced intertrochanteric fracture of right femur, initial encounter for closed fracture Brief History of Present Illness: 72-year-old male presented to the emergency room with right hip pain. The patient was removing a heavy large object out of his truck. When he removed the object off of the truck he did not realize how heavy it was. He was able to get out of the way upon removing the object but fell to the right hip hard on the ground. He immediately had pain to the right hip. He was not able to mobilize after the fall. He rated the pain about 10/10. He was not able to get up. At that point he understood something was wrong. He was brought to the ER for further evaluation. In the ER patient evaluated. CT of the lower extremity showed mild displaced comminuted intertrochanteric proximal right femur fracture. Lab-CBC, BMP, PT INR pending. EKG unremarkable. Patient will be admitted for further evaluation and treatment. ER physician discussed the case with orthopedics who plans surgical intervention today. When I saw the patient ER, he appeared comfortable. Pain better controlled. Patient denies any major medical problems. He does not take any medication on a regular basis. Hospital Course: Patient was admitted for right closed fracture. Orthopedics was consulted. He underwent open reduction and fixation. He did well post surgery. He was working well with PTOT. Rehab was consulted, patient was approved for rehab. He was then transferred up to a rehab for further rehabilitation and physical therapy in a safe and stable manner. He will follow up with orthopedic surgery in 2-3 weeks. He was also encouraged to follow up with is primary care physician for further evaluation/management of high blood sugars. Discussed in detail with patient and at bedside. He otherwise remained stable throughout the stay. Vital Signs/Physical Exam: Temp Pulse Resp BP Pulse Ox 97.6 F 72 18 162/91 H 97 11/04/18 08:00 11/04/18 08:00 11/04/18 08:00 11/04/18 08:00 11/04/18 08:00 General: Alert, In no apparent distress, Oriented x3 HEENT: Atraumatic, PERRLA, EOMI Neck: Supple, JVD not distended Respiratory: Clear to auscultation bilaterally, Normal air movement Cardiovascular: Regular rate/rhythm, Normal S1 S2 Gastrointestinal: Normal bowel sounds, No tenderness Musculoskeletal: No tenderness Integumentary: No rashes Neurological: Normal speech, Normal tone, Normal affect Lymphatics: No axilla or inguinal lymphadenopathy Laboratory Data at Discharge: WBC 8.8 K/uL (4.3-10.9) 11/03/18 04:10 Hgb 12.9 g/dL (13.6-17.9) L 11/04/18 05:16 Hct 35.9 % (39.6-49.0) L 11/04/18 05:16 Plt Count 147 K/uL (152-406) L 11/03/18 04:10 PT 13.3 SECONDS (9.5-12.5) H 10/31/18 02:55 INR 1.13 10/31/18 02:55 Sodium 137 mmol/L (136-145) 11/03/18 04:10 Potassium 4.0 mmol/L (3.5-5.1) 11/03/18 04:10 BUN 14 mg/dL (7-18) 11/03/18 04:10 Creatinine 1.04 mg/dL (0.55-1.3) 11/03/18 04:10 Glucose 187 mg/dL (74-106) H 11/03/18 04:10 Magnesium 2.4 mg/dL (1.8-2.4) 11/03/18 04:10 Total Bilirubin 1.2 mg/dL (0.2-1.0) H 10/31/18 02:55 AST 21 U/L (15-37) 10/31/18 02:55 ALT 36 U/L (12-78) 10/31/18 02:55 Alkaline Phosphatase 50 U/L (45-117) 10/31/18 02:55 Home Medications: NK [No Home Meds] 10/31/18 Diet: Regular Followup: Reece Potter MD [ACTIVE - CAN ADMIT] - 1-2 Weeks Time spent managing pt's care (in minutes): 55
--- NOTE | 2018-11-07 06:02 | OP ---
Date of Procedure: 10/31/2018 Surgeon: Reece Potter MD Preoperative Diagnosis: Closed displaced intertrochanteric right hip fracture. Postoperative Diagnosis: Closed displaced intertrochanteric right hip fracture. Procedures: Insertion of intramedullary nail, right hip intertrochanteric fracture. Indications: This is a 72-year-old male who was unloading a large weighty object from the back of a pickup when it shifted and he fell backward to strike his right hip on the concrete. He suffered imm ediate pain and inability to ambulate and was brought by ambulance to [facility] ED where x-ray revealed an intertrochanteric fracture of the right hip. The patient had been clear ed medically and he is aware of risks and benefits with all questions answered. He has elected to pr oceed with IM nailing of his right hip intertrochanteric fracture. Technique: The patient was taken to the operating room and given a general anesthetic. He was then called a time-out and all pertinent facts were discussed and it was decided to proceed with the proce klyeigh as planned. The patient was moved to the fracture table. A post was put in between the legs an d the feet were secured in the traction boots. The lower portion of the bed was removed as the left lower extremity was abducted as much as possible to allow the C-arm to take its place in between the legs and provide fluoroscopic information during the procedure. The right lower extremity was preppe d and draped from the rib cage and then circumferentially around the hip and thigh to the ankle. The vertical isolation drape was applied. Then, the incision was made proximal to the tip of the right greater trochanter. The cannulated awl was used to enter the intertrochanteric area. The beaded andressa de tamika was passed down into the intramedullary canal down to the level of the proximal pole of the pa tella. A reaming intertrochanteric drill bit was used and AFFIXUS 130 degree 11 x 180 mm hip nail wa s tapped in across the fracture site through the proper depth as verified by 2 views of the C-arm. T hen, the guide pin was utilized with a small incision to press to the lateral cortex. Then, a drill was used to advance the guide pin, checking in both views to correct and centered the guide pin in th e femoral neck and head. Once the guide pin was 1 cm from the end of the femoral head, it was measur ed and lag screw chosen was 10.5 x 115 mm. This was inserted and twisted into position until the C-a rm verified excellent position for the lag screw. An anti-rotational screw was inserted 100 mm in le ngth after drilling for it. The distal interlocking screw was placed through a smaller incision at t he tip of the nail. The distal screw was 5 x 44 mm. C-arm verified that all hardware was in appropr iate position for stabilization of this intertrochanteric fracture. Then, the 3 incisions were irrig ated with normal saline and closed using #1 Vicryl with interrupted sutures for the fascial layers an d the first 2 incisions and 2-0 Vicryl for closure of subcutaneous tissues and the first 2 incisions and skin zuly were used for skin closure for all 3 incisions. The implants used were the AFFIXUS 130 degree, 11 x 180 mm hip nail; lag screw 10.5 x 115 mm; AR screw 100 mm; distal screw 5.0 x 44 mm. The patient was transferred to the recovery room after Aquacel bandages were applied. The procedur e was well tolerated and the patient was in good condition. VERITO/GILBERTO Voice ID: [id number] Report ID: [id number]
== END 2018-11-04 13:18 | DRG 482 ==
LOC: ER 21:59 → ERHOLD 10-31 02:25 → 2ND 10-31 03:23
PROVIDERS: ADMIT Family Medicine; ATTEND Family Medicine
PROC: 0QS634Z Reposition Right Upper Femur with Internal Fixation Device, Percutaneous Approach (ICD-10-PCS; principal; 2018-10-31 16:00)
DX: S72.141A Displaced intertrochanteric fracture of right femur, initial encounter for closed fracture (principal); W01.0XXA Fall on same level from slipping, tripping and stumbling without subsequent striking against object, initial encounter; Y93.89 Activity, other specified; Z87.891 Personal history of nicotine dependence
CPT/HCPCS: 36415; 71045; 73530; 73700; 74018; 80048; 80076; 81003; 82962; 83036; 83735; 83880; 84484; 85014; 85018; 85025; 85610; 93005; 96361; 96374; 96375; 97110; 97116; 97162; 97166; 97530; 99285; J0330; J0690; J1170; J1650; J2175; J2250; J2270; J2405; J2704; J2710; J3010; J7030

== ENCOUNTER 2018-11-03 13:01 | Inpatient (IN) | payer BC ==
--- NOTE | 2018-11-04 12:44 | R.PREADM ---
SCREENING DATE AND TIME 11/04/2018 08:46 (CDT) ANTICIPATED REHAB ADMISSION DATE 11/06/2018 REFERRING FACILITY [facility] REFERRAL DATE AND TIME 11/04/2018 08:46 (CDT) ACUTE ADMIT DATE 10/31/2018 Previous Rehabilitation(s): No. REFERRING PHYSICIAN Irene Bergman REHAB FACILITY [facility] CLINICAL LIAISON Eulalio Salamanca PHYSICIAN REVIEWER Dr. Kenneth Zaragoza M.D. MR# [id number] [id number] NAME HELADIO JOSEPH AD[address]ESS [address] [place] [address] [address] [id number] DATE OF 1945 AGE 72 SSN# [id number] GENDER male MARITAL STATUS RACE white ADMIT FROM 02 - [facility] PRE-HOSPITAL LIVING SETTING 01 - Home (private home/apt. board/care, assisted living, long-term, transitional living) HOME TYPE AND DETAILS Type of home: single family house # of steps to enter the residence: 0 # of steps within the residence: 13 # of levels in the residence: 2 PRE-HOSPITAL LIVING WITH Family/Relatives FAMILY SUPPORT Yes PRIMARY FAMILY CONTACT NAME More Joseph PRIMARY FAMILY CONTACT PHONE PHONE PRIMARY FAMILY CONTACT ON ADM.? no IS PRIMARY FAMILY CONTACT AUTH. REP.? no 1ST EMERGENCY CONTACT More Joseph 1ST CONTACT PHONE PHONE 1ST CONTACT ON ADM. no IS 1ST CONTACT AUTH. REP.? no PHONE 2ND CONTACT ON ADM.? no PATIENT EMPLOYMENT STATUS Retired (for age) PATIENT EMPLOYER No Employer PAYOR INFORMATION: 1ST PAYOR NAME [facility] 1ST PAYOR PHONE 1ST PAYOR INJURY/ILLNESS DUE TO ACCIDENT? No ANOTHER GREEN PARTY RESPONSIBLE? No PRIMARY REHAB/ACUTE DIAGNOSIS: Closed, displaced intertrochanteric right hip fx ONSET DATE 10/31/2018 REHAB IMPAIRMENT CATEGORY (LOWELL): 07 Fracture of LE (FracLE) MEETS 60% rule AFFECTED EXTREMITIES: RLE PRIMARY DIAGNOSIS-RELATED SURGERIES: Emergency Unilateral Hip Fracture - performed by Reece Potter on 10/31/2018 INTERVENTIONS: - Hypertension Hypertension - Diabetes Diabetes SUMMARY OF ACUTE HOSPITALIZATION: Pt. is a 72 yo Right-handed white male. On 10/31/2018 he was admitted to [facility] and underwent emergency surgery for Closed, displac ed intertrochanteric right hip fx (Unilateral Hip Fracture) by Irene Bergman. Pre-morbidly, Pt. was independent/mod-I in Self-Care, Sphincter Control, Transfers Control, Locomotio n, Communication, and Social Cognition; and he had good Sphincter Control and Endurance. Currently, he has deficits of Transfers Control, Locomotion, Communication, Social Cognition, Balance , Safety Awareness, and Self-Care. Pt. is now referred to [facility] for acute in-patient rehabilitation in order to maximize patient's functional independence in activities of daily living, strength, ROM, and mobi lity. Patient has realistic goal of being discharged at assistance level 6-Andrea to reside at Home with Fam pat/Relatives. MEDICATION ALLERGIES: No Known Drug Allergies (NKDA) ENVIRONMENTAL ALLERGIES: - Substance Allergies None Known - Other Allergies None Known CODE STATUS: Full code WEIGHT/HEIGHT/BMI: WEIGHT 240 lbs HEIGHT 6' 1" BMI 31.7 DIET: - Diet Type Regular - Diet - Solid Texture Regular - Diet - Liquid Texture Regular - Tube Feed N/A SKIN DIAGRAM: Incision on Right hip; extent - small; stage - NS(Not Stageable). Treatment - Per Physician's Orders. REVIEW OF SYSTEMS: - Gen Alert and awake Lying in bed No apparent distress Oriented to: person, time, and place - Vital Signs Vital signs stable, afebrile - CVS RRR VITAL SIGNS Temperature: 97.6 F SBP/DBP: 157/83 Pulse: 70 Resp: 18 Vital signs stable, afebrile MEDICATIONS/TREATMENT: Other- See attached MAR (Medication Administration Record). CURRENT SPHINCTER CONTROL: Pre-hospital bladder status: continent # of bladder accidents in the last 7 days prior to screenin Pre-hospital bowel status: continent # of bowel accidents in the last 7 days prior to screenin Last Bowel Movement Date: 11/04/2018 DETAILED CURRENT FUNCTIONAL STATUS: - Bladder accident frequency: Ind - No accidents in the past 7 days - Bowel accident frequency: Ind - No accidents in the past 7 days - Walking score based on distance walked: 0(N/A) - Wheelchair score based on distance traveled: 0(N/A) FUNCTIONAL STATUS: - Self-Care A. Eating Ind Ind B. Grooming Ind sup C. Bathing Ind modA D. Dressing - Upper Ind Ind E. Dressing - Lower Ind Ind F. Toileting Ind modA - Sphincter Control G: Bladder control Ind Ind H: Bowel control Ind Ind - Transfers Control I. Bed/Chair/Wheelchair Ind Castro J. Toilet Ind Castro K. Tub/Shower Ind Castro - Locomotion L. Walk/Wheelchair (C) Ind Castro L. Walk/Wheelchair (W) Ind Castro M. Stairs Ind ADNO - Communication N. Comprehension (B) Ind sup O. Expression (B) Ind sup - Social Cognition P. Social Interaction Ind sup Q. Problem Solving Ind sup R. Memory Ind sup - Endurance Good - Balance Fair - Safety Awareness Fair CURRENT FUNC. DEFICITS: Transfers Control, Locomotion, Communication, Social Cognition, Balance, Safety Awareness, and Self-C are THERAPY NOTES FROM ACUTE CARE: Attached. SPECIAL NEEDS: - Safety Concerns Skin breakdown precautions needed due to skin breakdown risk PRECAUTIONS: - Weight Bearing Precaution WBAT right LE PATIENT NEEDS ACTIVE AND ONGOING THERAPEUTIC INTERVENTION OF MULTIPLE THERAPY DISCIPLINES, INCLUDING: - Dietary and Nutrition Adequate Nutrition. Nutritional Education. Nutritional Supplements. PATIENT NEEDS CLOSE MEDICAL SUPERVISION BY A REHABILITATION PHYSICIAN FOR: Bowel and Bladder Management Coordination of Treatment Team Post-Op Complications Wound Care PATIENT REQUIRES 24X7 REHAB NURSING FOR MEDICAL AND FUNCTIONAL MGT. OF THE FOLLOWING DEFICITS: ADL's Ambulation Bowel and Bladder Management Cognition Communication Disease Management Medication Management Patient/Family Education Providing Safe Environment Skin Integrity Transfers PATIENT REQUIRES INTENSIVE, COORDINATED INTERDISCIPLINARY APPROACH TO REHAB: Arranging Home Equipment/Services Discharge Planning Family Intervention/Training Business Office Coordinator/Case Management PATIENT REHAB POTENTIAL: Katherine JOSEPH is able and expected to receive 3 hours of individualized therapy daily on at least 5 of ev ranulfo 7 days Katherine GLEZs prognosis for significant practical improvement within a reasonable period of time appear s Good Expected level of measurable improvement will be of a practical value to Katherine JOSEPH's functional capac ity or adaptations to impairments Has a viable Discharge Plan Medically appropriate; condition is sufficiently stable to participate in intensive rehab program DISCHARGE PLAN: - Estimated Length of Stay (days) 14. - Consensus on plan Discharge plan has been discussed with primary caregiver. Patient/Family is in agreement with the karena n. Primary caregiver is in agreement with the plan. - Patient/Family Goals Return home with assistance. - Planned Living Setting Upon Discharge Home, to live with Family/Relatives. RECOMMENDED CARE LEVEL: IRF RECOMMENDATION DETAILS: Recommended Admission to Comprehensive Rehabilitation Program to Increase Functional [place] SCREENER'S COMPLETENESS CONFIRMATION: - Screening Confirmation The patient data collection on this preadmission screening form is finished PHYSICIANS REVIEW AND ADMISSION DETERMINATION Admit - Based on my review of the Pre-Admission Screening results, in my medical judgment and experie nce, I concur with the findings and recommend admission to [facility], as this patient requires an IRF level of care. SIGNATURE PANEL: Clinical Liaison - [electronically] signed by Kathy Valenzuela on 11/04/2018 at 10:03 (CDT) Clinical Liaison - [electronically] signed by Eulalio Salamanca PT on 11/04/2018 at 10:23 (CDT) Physician Reviewer - [electronically] signed by Dr. Kenneth Zaragoza M.D. on 11/04/2018 at 12:43 (CDT )
--- OUTSIDE RECORDS SUMMARY | 2018-11-04 13:55 | XMS REPORT | Continuity of Care Document ---
:1944 Author Organization [facility] Care Team Providers Name Role Phone Nagi Lopez MD Unavailable Unavailable Insurance Providers Payer name Policy type / Coverage Policy ID Covered alliance party ID Policy [place] [employer] EMPLOYEE PROGRAM Encounters Encounter Performer Location Date Lab Report Nagi Lopez MD [facility] [place] Nov 26, 2013 Problems Problem Effective Dates Problem Status STATUS POST BACK SURGERY Aug 26, 2013 Active STATUS POST HERNIA Aug 26, 2013 Active CLOSED FRACTURE OF LUMBAR VERTEBRA WITHOUT MENTION OF Active SPINAL CORD INJURY THORACIC OR LUMBOSACRAL NEURITIS OR RADICULITIS, Active UNSPECIFIED Procedures Date Description Comments Aug 26, 2013 smoking status Never smoker Medications Medication Instructions Start Date Status NORCO 10-325 MG TABS 1 tab po q 6 hs prn Aug 26, 2013 Active DIAZEPAM 5 MG TABS 1 tab every 8 hs prn Aug 26, 2013 Active Vital Signs Date Description Test Result Aug 26, 2013 weight E&M WEIGHT 243 lb Aug 26, 2013 height E&M HEIGHT 73 in Aug 26, 2013 temperature E&M TEMPERATURE 98.1 deg f Aug 26, 2013 pulse rate E&M PULSE RATE 91 /min Aug 26, 2013 blood pressure, systolic BP SYSTOLIC 137 mm Hg Aug 26, 2013 blood pressure, diastolic BP DIASTOLIC 81 mm Hg Sep 30, 2013 weight E&M WEIGHT 240 lb Sep 30, 2013 temperature E&M TEMPERATURE 97.2 deg f Sep 30, 2013 pulse rate E&M PULSE RATE 84 /min Sep 30, 2013 blood pressure, systolic BP SYSTOLIC 130 mm Hg Sep 30, 2013 blood pressure, diastolic BP DIASTOLIC 75 mm Hg Sep 30, 2013 height E&M HEIGHT 73 in Nov 25, 2013 weight E&M WEIGHT 254 lb Nov 25, 2013 height E&M HEIGHT 73 in Nov 25, 2013 temperature E&M TEMPERATURE 98.1 deg f Nov 25, 2013 pulse rate E&M PULSE RATE 83 /min Nov 25, 2013 blood pressure, systolic BP SYSTOLIC 130 mm Hg Nov 25, 2013 blood pressure, diastolic BP DIASTOLIC 82 mm Hg
--- OUTSIDE RECORDS SUMMARY | 2018-11-04 13:55 | XMS REPORT | Continuity of Care Document ---
:1944 Author Organization [employer] Care Team Providers Name Role Phone [employer] Unavailable Unavailable Problems Problem Status Onset Classification Date Comments Source Date Reported STATUS POST Active Condition 11/26/2013 [facility] BACK SURGERY 4 [facility] STATUS POST Active Condition 11/26/2013 [facility] HERNIA 4 [facility] THORACIC OR Active Condition 11/26/2013 [facility] LUMBOSACRAL 4 Neuro NEURITIS OR RADICULITIS, UNSPECIFIED CLOSED FRACTURE Active Condition 11/26/2013 [facility] OF LUMBAR 4 Neuro VERTEBRA WITHOUT MENTION OF SPINAL CORD INJURY Medications Medication Details Route Status Patient Ordering Order Source Instructions Provider Date BILLINGS 1 tab po q Active 08/27/19 [facility] MG TABS 6 hs prn 14 [facility] DIAZEPAM 5 MG 1 tab Active 08/27/19 [facility] TABS every 8 hs 14 Neuro prn Allergies, Adverse Reactions, Alerts No Known Medication Allergies Immunizations No Data Provided for This Section Results No Data Provided for This Section Pathology Reports No Data Provided for This Section Diagnostic Reports No Data Provided for This Section Consultation Notes No Data Provided for This Section Discharge Summaries No Data Provided for This Section History and Physicals No Data Provided for This Section Vital Signs Vital Sign Value Date Comments Source Weight 254 11/25/2013 [facility] Height 73 11/25/2013 [facility] Temperature Oral (F) 98.1 F 11/25/2013 [facility] Heart Rate 83 11/25/2013 [facility] Systolic (mm Hg) 130 11/25/2013 [facility] Diastolic (mm Hg) 82 11/25/2013 [facility] Weight 240 09/30/2013 [facility] Temperature Oral (F) 97.2 F 09/30/2013 [facility] Heart Rate 84 09/30/2013 [facility] Systolic (mm Hg) 130 09/30/2013 [facility] Diastolic (mm Hg) 75 09/30/2013 [facility] Height 73 09/30/2013 [facility] Weight 243 08/26/2013 [facility] Height 73 08/26/2013 [facility] Neuro Temperature Oral (F) 98.1 F 08/26/2013 [facility] Neuro Heart Rate 91 08/26/2013 [facility] Neuro Systolic (mm Hg) 137 08/26/2013 [facility] Neuro Diastolic (mm Hg) 81 08/26/2013 [facility] Neuro Encounters Location Location Encounter Encounter Reason Attending ADM DC Status Source Details Type Number For Provider Date Date Visit [facility] Office [id number] Nagi 11/25 11/25 [facility] Neuroscience Visit [address] /2013 [facility] Lab Report [id number] [facility] 11/26 11/26 [facility] [place] [address]EL[address] /2013 [facility] Procedures No Data Provided for This Section Assessment and Plan No Data Provided for This Section Plan of Care No Data Provided for This Section Social History No Data Provided for This Section Family History No Data Provided for This Section Advance Directives No Data Provided for This Section Functional Status No Data Provided for This Section
--- OUTSIDE RECORDS SUMMARY | 2018-11-04 13:55 | XMS REPORT | Continuity of Care Document ---
:1944 Author Organization [facility] Care Team Providers Name Role Phone Nagi Lopez MD Unavailable Unavailable Insurance Providers Payer name Policy type / Coverage Policy ID Covered green party ID Policy [place] [employer] EMPLOYEE PROGRAM Encounters Encounter Performer Location Date Office Visit Nagi Lopez MD [facility] Nov 25, 2013 Problems Problem Effective Dates Problem Status [...]
[2018-11-04] MEDS ORDERED: MELATONIN 3 MG TABLET PO PRN (15:02)
[2018-11-04] MEDS ORDERED: DOCUSATE NA/SENNA CONC 1 TAB PO PRN (15:22)
--- NOTE | 2018-11-04 15:24 | FAST ---
SHIFT START DATE/TIME: 11/04/2018 07:00 (CDT) SHIFT END DATE/TIME: 11/04/2018 19:00 (CDT) NAME HELADIO OTOOLE DATE OF : 1945 DATE OF ADMISSION: 11/04/2018 13:52 (CDT) PHONE: AGE: 72 N# [id number] GENDER: Male ENCOUNTER PHYSICIAN: Dr. Kenneth Zaragoza M.D. ADMISSION DIAGNOSIS: - Orthopaedic Disorders 08 - Unilateral Hip Fracture (11.01) Closed, displaced intertrochanteric right hip fx. EATING: EATING - STEP 1: Does the patient require the assistance of a person or device, or need extra time when eating? Yes. EATING - STEP 2: Does the patient require the assistance of a helper? No, patient only requires an assistive device, O R s/he takes more than reasonable time to eat, OR there is a safety concern, OR s/he requires modifie d food consistency EATING - SCORE: 6-NASIM GROOMING: Activity did not occur on this shift GROOMING - SCORE: 0-UNK BATHING: Activity did not occur on this shift BATHING - SCORE: 0-UNK DRESSING - UPPER BODY: Activity did not occur on this shift ARTICLES SCORE Total number of steps: 0 DRESSING - UPPER BODY - SCORE: 0-UNK DRESSING - LOWER BODY: Activity did not occur on this shift ARTICLES SCORE Total number of steps: 0 DRESSING - LOWER BODY - SCORE: 0-UNK TOILETING: TOILETING - STEP 1: Does the patient require the assistance of a person or device, or need extra time with toileting? Yes . TOILETING - STEP 2: Does the patient require the assistance of a helper? Yes. TOILETING - STEP 3: How much assistance does the patient require from the helper? Only supervision TOILETING - SCORE: 5-SUP BLADDER MANAGEMENT: Activity did not occur on this shift BLADDER MANAGEMENT - SCORE: 7-IND BOWEL MANAGEMENT: Activity did not occur on this shift BOWEL MANAGEMENT - SCORE: 7-IND TRANSFERS: BED, CHAIR, WHEELCHAIR: TRANSFERS: BED, CHAIR, WHEELCHAIR - STEP 1: Does the patient require assistance of a person or device, or need extra time with bed, chair, or whe elchair transfers? Yes. TRANSFERS: BED, CHAIR, WHEELCHAIR - STEP 2: Does the patient require the assistance of a helper? Yes. TRANSFERS: BED, CHAIR, WHEELCHAIR - STEP 3: How much assistance does the patient require from the helper? Steadying/guiding assistance TRANSFERS: BED, CHAIR, WHEELCHAIR - SCORE: 4-MIN TRANSFERS: TOILET: TRANSFERS: TOILET - STEP 1: Does the patient require the assistance of a person or device, or need extra time with toilet transfe rs? Yes. TRANSFERS: TOILET - STEP 2: Does the patient require the assistance of a helper? No. Patient only requires an assistive device feliciano ch as a grab bar or special seat, OR s/he takes more than reasonable time to perform toilet transfers , OR there is a safety concern when s/he performs toilet transfers. TRANSFERS: TOILET - SCORE: 6-NASIM TRANSFERS: SHOWER: Activity did not occur on this shift TRANSFERS: SHOWER - SCORE: 0-UNK TRANSFERS: TUB: Activity did not occur on this shift TRANSFERS: TUB - SCORE: 0-UNK LOCOMOTION: WALK: Activity did not occur on this shift LOCOMOTION: WALK - SCORE: 0-UNK LOCOMOTION: WHEELCHAIR: Activity did not occur on this shift LOCOMOTION: WHEELCHAIR - SCORE: 0-UNK COMPREHENSION: COMPREHENSION: TYPE: Both COMPREHENSION - STEP 1: Does the patient require help from a person or device, or need extra time to understand complex and a bstract ideas (such as current events, finances, discharge planning, medical issues, relationships, e tc)? No. COMPREHENSION - STEP 2: Does the patient need extra time, require an assistive device (such as glasses for visual comprehensi on or a hearing aid for auditory comprehension) or does s/he have mild difficulty understanding compl ex and abstract information? No. COMPREHENSION - SCORE: 7-IND EXPRESSION EXPRESSION: TYPE: Both EXPRESSION - STEP 1: Does the patient require help from a person or device, or need extra time expressing complex and abst ract ideas (such as current events, finances, discharge planning, medical issues, relationships, etc) ? No. EXPRESSION - STEP 2: Does the patient need extra time, require an assistive device (such as augmentive communication syste m or a communication board), OR does s/he have mild difficulty expressing complex and abstract ideas (including mild dysarthria or mild word-find problems)? No. EXPRESSION - SCORE: 7-IND SOCIAL INTERACTION: SOCIAL INTERACTION - STEP 1: Does the patient require a helper to interact with others in social and therapeutic situations? No. SOCIAL INTERACTION - STEP 2: Does the patient need extra time in social situations, OR does s/he interact with staff, other patien ts, and family members ONLY in structured environments, OR does s/he require medication for social in teraction? No. SOCIAL INTERACTION - SCORE: 7-IND PROBLEM SOLVING: PROBLEM SOLVING - STEP 1: Does the patient need help from a person or device, or need extra time to solve complex problems such as managing a checking account or confronting interpersonal problems? No. PROBLEM SOLVING - STEP 2: Does the patient require extra time to make decisions or solve problems, OR does s/he have slight dif ficulty reading, initiating, or self-correcting in unfamiliar situations? Yes, patient needs extra ti me. PROBLEM SOLVING - SCORE: 6-NASIM MEMORY: MEMORY - STEP 1: Does the patient need help from a person or device, or need extra time to remember frequently encount ered people, daily routines, and executing requests? No. MEMORY - STEP 2: Does the patient have slight difficulty recognizing frequently encountered people, daily routines, or executing requests without the need for repetition or using self-initiated or environmental cues to remember? Yes. MEMORY - SCORE: 6-NASIM SIGNATURE PANEL: The following modified sections: Eating - Score, Grooming - Score, Bathing - Score, Dressing - Upper Body - Score, Dressing - Lower Body - Score, Toileting - Score, Bladder Management - Score, Bowel Man agement - Score, Transfers: Bed, Chair, Wheelchair - Score, Transfers: Toilet - Score, Transfers: Lillian wer - Score, Transfers: Tub - Score, Locomotion: Walk - Score, Locomotion: Wheelchair - Score, Compre hension - Score, Expression - Score, Social Interaction - Score, Problem Solving - Score, Memory - Sc ore were [electronically] signed by Aurelio Balderas on FriNov 04 2018 15:23:03 GMT-0500 (Central Daylight Time)
[2018-11-04] MEDS ORDERED: ACETAMINOPHEN 500 MG TAB PO PRN (17:19)
[2018-11-05 07:06] LABS: Absolute Lymphocytes (CBC) 1.7 K/uL (0.7-4.9); Hematocrit 38.2 % (39.6-49.0); Lymphocytes % 21.5 % (15.3-44.8); MPV 9.5 fL (7.6-11.3)
[2018-11-05 07:31] LABS: Albumin 3.2 g/dL (3.4-5.0); Magnesium 2.5 mg/dL (1.8-2.4); Potassium 4.2 mmol/L (3.5-5.1); Prealbumin 14.8 mg/dL (20-40)
[2018-11-05] MEDS: ENOXAPARIN 40 MG/0.4 ML SQ SCH (08:00)
--- NOTE | 2018-11-05 08:45 | FAST ---
ENCOUNTER DATE AND TIME: 11/05/2018 08:00 (CDT) NAME HELADIO OTOOLE DATE OF : 1945 DATE OF ADMISSION: 11/04/2018 13:52 (CDT) PHONE: AGE: 72 SSN# [id number] GENDER: Male ENCOUNTER PHYSICIAN: Dr. Kenneth Zaragoza M.D. ADMISSION DIAGNOSIS: - Orthopaedic Disorders 08 - Unilateral Hip Fracture (11.01) Closed, displaced intertrochanteric right hip fx. EATING: Activity did not occur on this shift EATING - SCORE: 0-UNK GROOMING: Activity did not occur on this shift GROOMING - SCORE: 0-UNK BATHING: Activity did not occur on this shift BATHING - SCORE: 0-UNK DRESSING - UPPER BODY: Activity did not occur on this shift Patient is not dressing in public clothing ARTICLES SCORE Total number of steps: 0 DRESSING - UPPER BODY - SCORE: 0-UNK DRESSING - LOWER BODY: Activity did not occur on this shift Patient is not dressing in public clothing ARTICLES SCORE Total number of steps: 0 DRESSING - LOWER BODY - SCORE: 0-UNK TOILETING: Activity did not occur on this shift TOILETING - SCORE: 0-UNK BLADDER MANAGEMENT: Activity did not occur on this shift BLADDER MANAGEMENT - SCORE: 7-IND BOWEL MANAGEMENT: Activity did not occur on this shift BOWEL MANAGEMENT - SCORE: 7-IND TRANSFERS: BED, CHAIR, WHEELCHAIR: TRANSFERS: BED, CHAIR, WHEELCHAIR - STEP 1: Does the patient require assistance of a person or device, or need extra time with bed, chair, or whe elchair transfers? Yes. TRANSFERS: BED, CHAIR, WHEELCHAIR - STEP 2: Does the patient require the assistance of a helper? Yes. TRANSFERS: BED, CHAIR, WHEELCHAIR - STEP 3: How much assistance does the patient require from the helper? Only supervision TRANSFERS: BED, CHAIR, WHEELCHAIR - SCORE: 5-SUP TRANSFERS: TOILET: Activity did not occur on this shift TRANSFERS: TOILET - SCORE: 0-UNK TRANSFERS: SHOWER: Activity did not occur on this shift TRANSFERS: SHOWER - SCORE: 0-UNK TRANSFERS: TUB: Activity did not occur on this shift TRANSFERS: TUB - SCORE: 0-UNK LOCOMOTION: WALK: LOCOMOTION: WALK - STEP 1: Does the patient need help from a person or device, or need extra time to walk 150 feet? Yes. LOCOMOTION: WALK - STEP 2: How much assistance does the patient require to walk a minimum of 150 feet? Only supervision, cuing, or coaxing LOCOMOTION: WALK - SCORE: 5-SUP LOCOMOTION: WHEELCHAIR: Activity did not occur on this shift LOCOMOTION: WHEELCHAIR - SCORE: 0-UNK LOCOMOTION: STAIRS: LOCOMOTION: STAIRS - STEP 1: Does the patient need help to go up and down 12 to 14 stairs? Yes. LOCOMOTION: STAIRS - STEP 2: How much assistance does the patient need from the helper to go a minimum of 12 to 14 stairs? Only feliciano pervision, cuing, or coaxing LOCOMOTION: STAIRS - SCORE: 5-SUP COMPREHENSION: COMPREHENSION - SCORE: 0-UNK EXPRESSION EXPRESSION - SCORE: 0-UNK SOCIAL INTERACTION: SOCIAL INTERACTION - SCORE: 0-UNK PROBLEM SOLVING: PROBLEM SOLVING - SCORE: 0-UNK MEMORY: MEMORY - SCORE: 0-UNK SIGNATURE PANEL: The following modified sections: Transfers: Bed, Chair, Wheelchair - Score, Transfers: Toilet - Score , Locomotion: Walk - Score, Locomotion: Wheelchair - Score, Locomotion: Stairs - Score were [electron orin] signed by Eulalio Salamanca PT on FriNov 05 2018 08:43:32 T-0500 (Central Daylight Time)
--- NOTE | 2018-11-05 14:48 | FAST ---
SHIFT START DATE/TIME: 11/05/2018 07:00 (CDT) SHIFT END DATE/TIME: 11/05/2018 19:00 (CDT) NAME HELADIO OTOOLE DATE OF : 1945 DATE OF ADMISSION: 11/04/2018 13:52 (CDT) PHONE: AGE: 72 SSN# [id number] GENDER: Male ENCOUNTER PHYSICIAN: Dr. Kenneth Zaragoza M.D. ADMISSION DIAGNOSIS: - Orthopaedic Disorders 08 - Unilateral Hip Fracture (11.01) Closed, displaced intertrochanteric right hip fx. EATING: EATING - STEP 1: Does the patient require the assistance of a person or device, or need extra time when eating? Yes. EATING - STEP 2: Does the patient require the assistance of a helper? No, patient only requires an assistive device, O R s/he takes more than reasonable time to eat, OR there is a safety concern, OR s/he requires modifie d food consistency EATING - SCORE: 6-NASIM GROOMING: Activity did not occur on this shift GROOMING - SCORE: 0-UNK BATHING: Activity did not occur on this shift BATHING - SCORE: 0-UNK DRESSING - UPPER BODY: Activity did not occur on this shift ARTICLES SCORE Total number of steps: 0 DRESSING - UPPER BODY - SCORE: 0-UNK DRESSING - LOWER BODY: Activity did not occur on this shift ARTICLES SCORE Total number of steps: 0 DRESSING - LOWER BODY - SCORE: 0-UNK TOILETING: TOILETING - STEP 1: Does the patient require the assistance of a person or device, or need extra time with toileting? Yes . TOILETING - STEP 2: Does the patient require the assistance of a helper? Yes. TOILETING - STEP 3: How much assistance does the patient require from the helper? Only supervision TOILETING - SCORE: 5-SUP BLADDER MANAGEMENT: BLADDER MANAGEMENT - STEP 1: Does the patient control the bladder completely and intentionally without equipment or devices or med ications, and is always continent? No. BLADDER MANAGEMENT - STEP 2: Does the patient require the assistance of a helper? No, patient requires and independently uses an a ssistive device, such as a urinal, bedpan, bedside commode, catheter, absorbent pad, or collecting de vice BLADDER MANAGEMENT - SCORE: 6-NASIM BOWEL MANAGEMENT: BOWEL MANAGEMENT - STEP 1: Does the patient control bowels completely and intentionally without equipment devices or medications AND is always continent? No. BOWEL MANAGEMENT - STEP 2: Does the patient require the assistance of a helper? No, patient requires and manages independently a n assistive device such as a bedpan, bedside commode, absorbent pad, incontinent device, or collectin g device BOWEL MANAGEMENT - SCORE: 6-NASIM TRANSFERS: BED, CHAIR, WHEELCHAIR: TRANSFERS: BED, CHAIR, WHEELCHAIR - STEP 1: Does the patient require assistance of a person or device, or need extra time with bed, chair, or whe elchair transfers? Yes. TRANSFERS: BED, CHAIR, WHEELCHAIR - STEP 2: Does the patient require the assistance of a helper? Yes. TRANSFERS: BED, CHAIR, WHEELCHAIR - STEP 3: How much assistance does the patient require from the helper? Only supervision TRANSFERS: BED, CHAIR, WHEELCHAIR - SCORE: 5-SUP TRANSFERS: TOILET: TRANSFERS: TOILET - STEP 1: Does the patient require the assistance of a person or device, or need extra time with toilet transfe rs? Yes. TRANSFERS: TOILET - STEP 2: Does the patient require the assistance of a helper? Yes. TRANSFERS: TOILET - STEP 3: How much assistance does the patient require from the helper? Only supervision, cuing, coaxing, OR he lp to set out transfer equipment or to lock brakes and/or lift foot rests TRANSFERS: TOILET - SCORE: 5-SUP TRANSFERS: SHOWER: Activity did not occur on this shift TRANSFERS: SHOWER - SCORE: 0-UNK TRANSFERS: TUB: Activity did not occur on this shift TRANSFERS: TUB - SCORE: 0-UNK LOCOMOTION: WALK: Activity did not occur on this shift LOCOMOTION: WALK - SCORE: 0-UNK LOCOMOTION: WHEELCHAIR: Activity did not occur on this shift LOCOMOTION: WHEELCHAIR - SCORE: 0-UNK COMPREHENSION: COMPREHENSION: TYPE: Both COMPREHENSION - STEP 1: Does the patient require help from a person or device, or need extra time to understand complex and a bstract ideas (such as current events, finances, discharge planning, medical issues, relationships, e tc)? No. COMPREHENSION - STEP 2: Does the patient need extra time, require an assistive device (such as glasses for visual comprehensi on or a hearing aid for auditory comprehension) or does s/he have mild difficulty understanding compl ex and abstract information? Yes. COMPREHENSION - SCORE: 6-NASIM EXPRESSION EXPRESSION: TYPE: Both EXPRESSION - STEP 1: Does the patient require help from a person or device, or need extra time expressing complex and abst ract ideas (such as current events, finances, discharge planning, medical issues, relationships, etc) ? No. EXPRESSION - STEP 2: Does the patient need extra time, require an assistive device (such as augmentive communication syste m or a communication board), OR does s/he have mild difficulty expressing complex and abstract ideas (including mild dysarthria or mild word-find problems)? No. EXPRESSION - SCORE: 7-IND SOCIAL INTERACTION: SOCIAL INTERACTION - STEP 1: Does the patient require a helper to interact with others in social and therapeutic situations? No. SOCIAL INTERACTION - STEP 2: Does the patient need extra time in social situations, OR does s/he interact with staff, other patien ts, and family members ONLY in structured environments, OR does s/he require medication for social in teraction? No. SOCIAL INTERACTION - SCORE: 7-IND PROBLEM SOLVING: PROBLEM SOLVING - STEP 1: Does the patient need help from a person or device, or need extra time to solve complex problems such as managing a checking account or confronting interpersonal problems? No. PROBLEM SOLVING - STEP 2: Does the patient require extra time to make decisions or solve problems, OR does s/he have slight dif ficulty reading, initiating, or self-correcting in unfamiliar situations? No. PROBLEM SOLVING - SCORE: 7-IND MEMORY: MEMORY - STEP 1: Does the patient need help from a person or device, or need extra time to remember frequently encount ered people, daily routines, and executing requests? No. MEMORY - STEP 2: Does the patient have slight difficulty recognizing frequently encountered people, daily routines, or executing requests without the need for repetition or using self-initiated or environmental cues to remember? No. MEMORY - SCORE: 7-IND SIGNATURE PANEL: The following modified sections: Eating - Score, Grooming - Score, Bathing - Score, Dressing - Upper Body - Score, Dressing - Lower Body - Score, Toileting - Score, Bladder Management - Score, Bowel Man agement - Score, Transfers: Bed, Chair, Wheelchair - Score, Transfers: Toilet - Score, Transfers: Lillian wer - Score, Transfers: Tub - Score, Locomotion: Walk - Score, Locomotion: Wheelchair - Score, Compre hension - Score, Expression - Score, Social Interaction - Score, Problem Solving - Score, Memory - Sc ore were [electronically] signed by Aurelio Balderas on FriNov 05 2018 14:47:52 GMT-0500 (Central Daylight Time)
--- NOTE | 2018-11-05 15:14 | FAST ---
ENCOUNTER DATE AND TIME: 11/05/2018 08:00 (CDT) NAME HELADIO OTOOLE DATE OF : 1945 DATE OF ADMISSION: 11/04/2018 13:52 (CDT) PHONE: AGE: 72 SSN# [id number] GENDER: Male ENCOUNTER PHYSICIAN: Dr. Kenneth Zaragoza M.D. ADMISSION DIAGNOSIS: - Orthopaedic Disorders 08 - Unilateral Hip Fracture (11.01) Closed, displaced intertrochanteric right hip fx. EATING: EATING - STEP 1: Does the patient require the assistance of a person or device, or need extra time when eating? No. EATING - SCORE: 7-IND GROOMING: Comb/brush hair Oral care Wash, rinse, and dry face Wash, rinse, and dry hands GROOMING - STEP 1: Does the patient require the assistance of a person or device, or need extra time when grooming? No. GROOMING - SCORE: 7-IND BATHING: Abdomen Buttocks Chest Left arm Left lower leg and foot Left upper leg Perineal area Right arm Right lower leg and foot Right upper leg BATHING - STEP 1: Does the patient require the assistance of a person or device, or need extra time when bathing? Yes. BATHING - STEP 2: Does the patient require the assistance of a helper? Yes. BATHING - STEP 3: How much assistance does the patient require from the helper? Only supervision, cuing, coaxing, instr uctions, encouragement BATHING - SCORE: 5-SUP DRESSING - UPPER BODY: T-shirt/pullover shirt (four steps) ARTICLES SCORE Total number of steps: 4 DRESSING - UPPER BODY - STEP 1: Does the patient require help from a person or device, or need extra time when dressing above the [address]? No. DRESSING - UPPER BODY - SCORE: 7-IND DRESSING - LOWER BODY: Elastic waist pants (three steps) Sock - Left foot (one step) Sock - Right foot (one step) Tied or buckled shoe - Left foot (two steps) Tied or buckled shoe - Right foot (two steps) Underwear (three steps) ARTICLES SCORE Total number of steps: 12 DRESSING - LOWER BODY - STEP 1: Does the patient require help from a person or device, or need extra time when dressing below the daph[address] st? No. DRESSING - LOWER BODY - SCORE: 7-IND TOILETING: TOILETING - STEP 1: Does the patient require the assistance of a person or device, or need extra time with toileting? No. TOILETING - SCORE: 7-IND BLADDER MANAGEMENT: Activity did not occur on this shift BLADDER MANAGEMENT - SCORE: 7-IND BOWEL MANAGEMENT: Activity did not occur on this shift BOWEL MANAGEMENT - SCORE: 7-IND TRANSFERS: BED, CHAIR, WHEELCHAIR: Activity did not occur on this shift TRANSFERS: BED, CHAIR, WHEELCHAIR - SCORE: 0-UNK TRANSFERS: TOILET: TRANSFERS: TOILET - STEP 1: Does the patient require the assistance of a person or device, or need extra time with toilet transfe rs? Yes. TRANSFERS: TOILET - STEP 2: Does the patient require the assistance of a helper? Yes. TRANSFERS: TOILET - STEP 3: How much assistance does the patient require from the helper? Only supervision, cuing, coaxing, OR he lp to set out transfer equipment or to lock brakes and/or lift foot rests TRANSFERS: TOILET - SCORE: 5-SUP TRANSFERS: SHOWER: TRANSFERS: SHOWER - STEP 1: Does the patient require the assistance of a person or device, or need extra time with shower transfe rs? Yes. TRANSFERS: SHOWER - STEP 2: Does the patient require the assistance of a helper? Yes. TRANSFERS: SHOWER - STEP 3: How much assistance does the patient require from the helper? Only supervision, cuing, coaxing, or he lp to set out transfer equipment or to lock brakes and/or lift foot rests TRANSFERS: SHOWER - SCORE: 5-SUP TRANSFERS: TUB: Activity did not occur on this shift TRANSFERS: TUB - SCORE: 0-UNK LOCOMOTION: WALK: Activity did not occur on this shift LOCOMOTION: WALK - SCORE: 0-UNK LOCOMOTION: WHEELCHAIR: Activity did not occur on this shift LOCOMOTION: WHEELCHAIR - SCORE: 0-UNK LOCOMOTION: STAIRS: Activity did not occur on this shift LOCOMOTION: STAIRS - SCORE: 0-UNK COMPREHENSION: COMPREHENSION: TYPE: Both COMPREHENSION - STEP 1: Does the patient require help from a person or device, or need extra time to understand complex and a bstract ideas (such as current events, finances, discharge planning, medical issues, relationships, e tc)? No. COMPREHENSION - STEP 2: Does the patient need extra time, require an assistive device (such as glasses for visual comprehensi on or a hearing aid for auditory comprehension) or does s/he have mild difficulty understanding compl ex and abstract information? No. COMPREHENSION - SCORE: 7-IND EXPRESSION EXPRESSION: TYPE: Both EXPRESSION - STEP 1: Does the patient require help from a person or device, or need extra time expressing complex and abst ract ideas (such as current events, finances, discharge planning, medical issues, relationships, etc) ? No. EXPRESSION - STEP 2: Does the patient need extra time, require an assistive device (such as augmentive communication syste m or a communication board), OR does s/he have mild difficulty expressing complex and abstract ideas (including mild dysarthria or mild word-find problems)? No. EXPRESSION - SCORE: 7-IND SOCIAL INTERACTION: SOCIAL INTERACTION - STEP 1: Does the patient require a helper to interact with others in social and therapeutic situations? No. SOCIAL INTERACTION - STEP 2: Does the patient need extra time in social situations, OR does s/he interact with staff, other patien ts, and family members ONLY in structured environments, OR does s/he require medication for social in teraction? No. SOCIAL INTERACTION - SCORE: 7-IND PROBLEM SOLVING: PROBLEM SOLVING - STEP 1: Does the patient need help from a person or device, or need extra time to solve complex problems such as managing a checking account or confronting interpersonal problems? No. PROBLEM SOLVING - STEP 2: Does the patient require extra time to make decisions or solve problems, OR does s/he have slight dif ficulty reading, initiating, or self-correcting in unfamiliar situations? No. PROBLEM SOLVING - SCORE: 7-IND MEMORY: MEMORY - STEP 1: Does the patient need help from a person or device, or need extra time to remember frequently encount ered people, daily routines, and executing requests? No. MEMORY - STEP 2: Does the patient have slight difficulty recognizing frequently encountered people, daily routines, or executing requests without the need for repetition or using self-initiated or environmental cues to remember? No. MEMORY - SCORE: 7-IND SIGNATURE PANEL: The following modified sections: Eating - Score, Grooming - Score, Bathing - Score, Dressing - Upper Body - Score, Dressing - Lower Body - Score, Toileting - Score, Transfers: Bed, Chair, Wheelchair - S core, Transfers: Toilet - Score, Transfers: Shower - Score, Transfers: Tub - Score, Comprehension - S core, Expression - Score, Social Interaction - Score, Problem Solving - Score, Memory - Score were [e lectronically] signed by Shonna Archer OT on FriNov 05 2018 15:14:01 GMT-0500 (Central Daylight T madhu)
--- NOTE | 2018-11-05 20:28 | R.HP ---
FACILITY: [facility] ENCOUNTER DATE AND TIME: 11/05/2018 20:24 (CDT) MR#: [id number] NAME HELADIO OTOOLE ADDRESS: [address] [place] [address] [address] CITY: [place] [address]IP [address] PHONE: DATE OF : 1945 AGE: 72 SSN# [id number] GENDER: Male DEXTERITY Right-handed MARITAL STATUS RACE White PRE-HOSPITAL LIVING SETTING 01 - Home (private home/apt. board/care, assisted living, [place] [facility], transitional living) PRE-HOSPITAL LIVING WITH Family/Relatives ENCOUNTER PHYSICIAN: Dr. Kenneth Zaragoza M.D. REFERRING DOCTOR: Irene Bergman DATE OF ADMISSION: 11/04/2018 13:52 (CDT) REFERRING FACILITY [facility] HOME TYPE AND DETAILS: Type of home: single family house # of steps to enter the residence: 0 # of steps within the residence: 13 # of levels in the residence: 2 ADMISSION DIAGNOSIS: Closed, displaced intertrochanteric right hip fx ONSET DATE: 10/31/2018 PRIMARY DIAGNOSIS-RELATED SURGERIES: Emergency Unilateral Hip Fracture - performed by Reece Potter on 10/31/2018 HISTORY OF PRESENT ILLNESS (HPI): Pt. is a 72 yo Right-handed white male. On 10/31/2018 he was admitted to [facility] and underwent emergency surgery for Closed, displac ed intertrochanteric right hip fx (Unilateral Hip Fracture) by Irene Bergman. Pre-morbidly, Pt. was independent/mod-I in Self-Care, Sphincter Control, Transfers Control, Locomotio n, Communication, and Social Cognition; and he had good Sphincter Control and Endurance. Currently, he has deficits of Transfers Control, Locomotion, Communication, Social Cognition, Balance , Safety Awareness, and Self-Care. Pt. is now referred to [facility] for acute in-patient rehabilitation in order to maximize patient's functional independence in activities of daily living, strength, ROM, and mobi lity. Patient has realistic goal of being discharged at assistance level 6-Andrea to reside at Home with Fam pat/Relatives. MEDICATION ALLERGIES: No Known Drug Allergies (NKDA) ENVIRONMENTAL ALLERGIES: - Substance Allergies None Known - Other Allergies None Known FAMILY HISTORY: Family history is not contributory. SOCIAL HISTORY: - Home Living Family/Relatives REVIEW OF SYSTEMS: - Gen No Chills Fatigue No Fever - Eyes No Double Vision No itchiness - ENMT No Difficulty Swallowing - CVS No Chest Discomfort No Chest Pain Fatigue No Weight Gain - Resp No Cough No Shortness of Breath - GI Continent No Abdominal Pain No Constipation No Diarrhea - Continent No Kidney Pain No Painful Urination No Urinary Urgency - MSK No Joint Pain No Muscle Cramps Stiffness - Skin No Itching No Rash No Suspicious Lesions - Neuro Coordination Difficulty No Difficulty with Concentration No Memory Loss No Seizures Weakness - Psych No Anxiety No Depression No HIV Exposure No Persistent Infections No Seasonal Allergies - Endo No Cold/Heat Intolerance No Excessive Hunger No Excessive Thirst No Excessive Urination PHYSICAL EXAM - Gen Alert and awake Lying in bed No apparent distress Oriented to: person, time, and place - Skin No breakdown No numbness - Eyes No abnormalities - ENMT No abnormalities - Neck No abnormalities - CVS RRR - Chest No abnormalities - Resp Clear to auscultation - Abd + bowel sounds - GI Soft Deferred - No abnormalities - Ext Trace edema in right leg and foot. - MSK 4+/5 weakness in right lower extremity - Neuro 4/5 strength right lower extremity. - Psych No abnormalities VITAL SIGNS Temperature: 97.6 F SBP/DBP: 157/83 Pulse: 70 Resp: 18 NURSING: - Shower allowing shower - Skin care per protocol PRECAUTIONS: - Weight Bearing Precaution WBAT right LE ACTIVITIES OOB only with supervision FUNCTIONAL STATUS: - Self-Care A. Eating Ind Ind B. Grooming Ind sup C. Bathing Ind modA D. Dressing - Upper Ind Ind E. Dressing - Lower Ind Ind F. Toileting Ind modA - Sphincter Control G: Bladder control Ind Ind H: Bowel control Ind Ind - Transfers Control I. Bed/Chair/Wheelchair Ind Castro J. Toilet Ind Castro K. Tub/Shower Ind Castro - Locomotion L. Walk/Wheelchair (C) Ind Castro L. Walk/Wheelchair (W) Ind Castro M. Stairs Ind ADNO - Communication N. Comprehension (B) Ind sup O. Expression (B) Ind sup - Social Cognition P. Social Interaction Ind sup Q. Problem Solving Ind sup R. Memory Ind sup - Endurance Good - Balance Fair - Safety Awareness Fair CURRENT FUNC. DEFICITS: Transfers Control, Locomotion, Communication, Social Cognition, Balance, Safety Awareness, and Self-C are MEDICATIONS: - Other See attached MAR (Medication Administration Record) ASSESSMENT: Pt. is a 72 yo Right-handed white male.On 10/31/2018 he was admitted to [facility] emergency surgery for Closed, displaced intertrochanteric right hip fx (Unilateral Hip Fracture) by Irene Bergman.Pre-morbidly, Pt. was independent/mod-I in Self-Care, Sphincter Control, Transfers Cont rol, Locomotion, Communication, and Social Cognition; and he had good Sphincter Control and Endurance .Currently, he has deficits of Transfers Control, Locomotion, Communication, Social Cognition, Balanc e, Safety Awareness, and Self-Care.Pt. is now referred to [facility] for acute in-patient rehabilitation in order to maximize patient's functional independence in activities of da pat living, strength, ROM, and mobility.- Rehab Goal Patient has realistic goal of being discharged at assistance level 6-Andrea to reside at Home with Fam pat/Relatives. - Physical Therapy Decreased range of motion - to improve, our physical therapists will perform initial evaluation of pt 's status upon admission and devise an individualized program for increasing patient's Range of Motio n. Gait dysfunction - to improve, our physical therapists will perform initial evaluation of pt's status upon admission and devise an individualized program for Gait Training, and Wheel Chair mobility Inability to transfer - to improve, our physical therapists will perform initial evaluation of pt's s tatus upon admission and devise an individualized program for Bed mobility Need for home safety evaluation - to improve, our physical therapists will perform initial evaluation of pt's status upon admission and devise an individualized program for Home Evaluation Need in caregiver upon discharge - to improve, our physical therapists will perform initial evaluatio n of pt's status upon admission and devise an individualized program for Caregiver Training Edema - to improve, our physical therapists will perform initial evaluation of pt's status upon admi ssion and devise an individualized program for Elevation Training, and Lymphedema Therapy New precaution - to improve, our physical therapists will perform initial evaluation of pt's status u nomi admission and devise an individualized program for Patient precaution education Poor balance - to improve, our physical therapists will perform initial evaluation of pt's status upo n admission and devise an individualized program for Balance Training Achieving independence - to improve, our physical therapists will perform initial evaluation of pt's status upon admission and devise an individualized program for Community Reintegration Activities - Occupational Therapy ADL deficits - to improve, our occupation therapists will perform initial evaluation of pt's status u nomi admission and devise an individualized program for Bathing, Bed mobility, Community Reintegration , Cooking, Dressing, Eating, Fine Motor Skills, Grooming, Homemaking, Kitchen Mobility, Laundry, Nina ent Education, Safety Awareness, Splinting - Positioning, Transfers(Toilet, Tub, Shower), and Wheel C hair Management Cognitive deficits - to improve, our occupation therapists will perform initial evaluation of pt's st atus upon admission and devise an individualized program for Cognition - orientation Need for home care coordinator - to improve, our occupation therapists will perform initial evaluation of pt's s tatus upon admission and devise an individualized program for Caregiver Training MEDICAL PLAN: - Anterior Hip Precaution No abduction No active extension No adduction across midline No external rotation No hip flexion >90 degrees No internal rotation - Diet - Liquid Texture Start Regular - Tube Feed Start N/A - Diet Type Start Regular - Posterior Hip Precaution No adduction across midline No external rotation No hip flexion >90 degrees No internal rotation No wheel chair propulsion - Weight Bearing Precaution WBAT right LE - Skin care per protocol - Other See attached MAR (Medication Administration Record) - Diet - Solid Texture Regular - Shower shower DISCHARGE PLAN: - Estimated Length of Stay (days) 14. - Consensus on plan Discharge plan has been discussed with primary caregiver. Patient/Family is in agreement with the karena n. Primary caregiver is in agreement with the plan. - Patient/Family Goals Return home with assistance. - Planned Living Setting Upon Discharge Home, to live with Family/Relatives. SIGNATURE PANEL: (CDT)
--- NOTE | 2018-11-05 20:28 | PAPE ---
PATIENT: [facility] MR# [id number] REFERRING DOCTOR Irene Bergman EVALUATION DATE AND TIME 11/05/2018 20:27 (CDT) NAME HELADIO OTOOLE DATE OF 1945 AGE 72 PHONE SSN# [id number] GENDER male EVALUATING PHYSICIAN Dr. Kenneth Zaragoza M.D. ADMISSION DIAGNOSIS: Closed, displaced intertrochanteric right hip fx ONSET DATE 10/31/2018 POST-ADMISSION FUNCTIONAL/MEDICAL STATUS: - Bladder Same accident frequency: Ind - No accidents in the past 7 days - Bowel Same accident frequency: Ind - No accidents in the past 7 days - Walking Same score based on distance walked: 0(N/A) - Wheelchair Same score based on distance traveled: 0(N/A) STATUS CHANGE EVALUATION: No change in Functional or Medical Status is identified compared with Pre-Admission screening. PATIENT NEEDS CLOSE MEDICAL SUPERVISION BY A REHABILITATION PHYSICIAN FOR: Bowel and Bladder Management Coordination of Treatment Team Post-Op Complications Wound Care PATIENT REQUIRES 24X7 REHAB NURSING FOR MEDICAL AND FUNCTIONAL MGT. OF THE FOLLOWING DEFICITS: ADL's Ambulation Bowel and Bladder Management Cognition Communication Disease Management Medication Management Patient/Family Education Providing Safe Environment Skin Integrity Transfers PATIENT REQUIRES INTENSIVE, COORDINATED INTERDISCIPLINARY APPROACH TO REHAB: Arranging Home Equipment/Services Discharge Planning Family Intervention/Training Sample Clerk/Case Management LIST OF IDENTIFIED AND POTENTIAL PROBLEMS: Alteration in leisure activities Bladder, Incontinence Bowel, Incontinence Infection, Actual or Potential Mobility Impaired Pain, Alteration in Comfort Self Care Deficit Skin Integrity, Actual or Potential Urinary Tract Infection (UTI), Actual or Potential INTERVENTIONS - Hypertension Hypertension. - Diabetes Diabetes. PATIENT COULD BE AT RISK FOR COMPLICATIONS FROM ADVERSE MEDICAL CONDITIONS DUE TO HIS/HER COMORBIDITI ES AND THE RIGORS OF THE INTENSIVE REHABILLITATION PROGRAM. METHODS OR INTERVENTIONS TO AVOID COMPLIC ATIONS INCLUDE: - Bleeding Assess lab values and manage abnormalities. Nursing to teach precautions for anti-coagulation therapy . Wound to be assessed every shift. - Infection Clinical staff to assess and manage the signs and symptoms of infection including fever, redness, war mth, etc. - Urinary Tract Infection - Falls Patient will be evaluated for Fall Precautions and will be placed on Fall Precautions as indicated pe r protocol. - Skin Breakdown Nursing will assess skin daily using assessment tool and will place on Skin Breakdown Precautions as indicated per protocol. - Pain Clinical staff may employ non-medication methods such as massage, distraction, decrease stimulus, etc . as needed. Clinical staff will assess patient's pain level every shift per protocol to assess and e nsure pain management effectiveness. Medications will be given and the pain level re-assessed. PRELIMINARY PLAN OF CARE: - Physical Therapy Patient needs Physical Therapy for a daily minimum of 1.5 hours at least 5 out of 7 days, to improve: Mobility, Strengthening, Transfers, Stretching, ROM, Endurance, Ability to manage stairs, Gait, and Balance. - Rehabilitation Nursing Patient requires 24x7 Rehabilitation Nursing for: Pain Issues, Identifying and preventing risk factor s, Monitoring and reporting current medical conditions, Assisting with ambulation and transfer, Saurav ting with all ADL-s, Teaching patients about disease process and medications, Family teaching, Provid ing safe environment, Bowel and Bladder Issues, Skin Integrity, and Medication Management. Patient needs Sample Clerk and/or Case Management for: Discharge Planning, Arranging Home Equipmen t or Services, and Family Interventions. - Dietary and Nutrition Services Patient needs Dietary and Nutrition Services for: Adequate Nutrition, Nutritional Supplements, and Nu tritional Education. - Occupational Therapy Patient needs Occupational Therapy for a daily minimum of 1.5 hours at least 5 out of 7 days, to impr ove Activities of Daily Living, including: Eating, Grooming, Bathing, Dressing, Toileting, Toilet Tra nsfers, Community Reintegration, Higher functional activities, Adaptive Equipment, Splinting, Househo ld Tasks, and Other activities as determined. POTENTIAL FUNCTIONAL GOALS FOR PATIENT TO ACHIEVE BY DISCHARGE: - Safety Precaution Patient will remain free from falls or injury at time of discharge. - Bed Mobility Patient will perform bed mobility at 4-Castro level of assistance. - Transfers Patient will complete transfers from bed to chair at 4-Castro level of assistance. - Mobility Patient will ambulate 150 ft with 4-Castro level of assistance with RW. PATIENT REHAB POTENTIAL Katherine OTOOLE is able and expected to receive 3 hours of individualized therapy daily on at least 5 of ev ranulfo 7 days Katherine OTOOLE's prognosis for significant practical improvement within a reasonable period of time appear s Good Expected level of measurable improvement will be of a practical value to Katherine OTOOLE's functional capac ity or adaptations to impairments Has a viable Discharge Plan Medically appropriate; condition is sufficiently stable to participate in intensive rehab program DISCHARGE PLAN: - Estimated Length of Stay (days) 14. - Consensus on plan Discharge plan has been discussed with primary caregiver. Patient/Family is in agreement with the karena n. Primary caregiver is in agreement with the plan. - Patient/Family Goals Return home with assistance. - Planned Living Setting Upon Discharge Home, to live with Family/Relatives. CONCLUSION ON REHABILITATION NECESSITY: I have evaluated patient's pre-admission functional status and, comparing it to the patient's post-ad mission functional status now, I conclude that the pre-admission assessment was accurate. Patient's c ondition on admission supports the medical necessity of admission to IRF. It is safe to proceed with patient's therapy program. SIGNATURE PANEL: (CDT)
[2018-11-06] MEDS: ENOXAPARIN 40 MG/0.4 ML SQ SCH (07:34)
--- NOTE | 2018-11-06 08:26 | FAST ---
ENCOUNTER DATE AND TIME: 11/06/2018 08:00 (CDT) NAME HELADIO OTOOLE DATE OF : 1945 DATE OF ADMISSION: 11/04/2018 13:52 (CDT) PHONE: AGE: 72 SSN# [id number] GENDER: Male ENCOUNTER PHYSICIAN: Dr. Kenneth Zaragoza M.D. ADMISSION DIAGNOSIS: - Orthopaedic Disorders 08 - Unilateral Hip Fracture (11.01) Closed, displaced intertrochanteric right hip fx. EATING: Activity did not occur on this shift EATING - SCORE: 0-UNK GROOMING: Activity did not occur on this shift GROOMING - SCORE: 0-UNK BATHING: Activity did not occur on this shift BATHING - SCORE: 0-UNK DRESSING - UPPER BODY: Activity did not occur on this shift Patient is not dressing in public clothing ARTICLES SCORE Total number of steps: 0 DRESSING - UPPER BODY - SCORE: 0-UNK DRESSING - LOWER BODY: Activity did not occur on this shift Patient is not dressing in public clothing ARTICLES SCORE Total number of steps: 0 DRESSING - LOWER BODY - SCORE: 0-UNK TOILETING: Activity did not occur on this shift TOILETING - SCORE: 0-UNK BLADDER MANAGEMENT: Activity did not occur on this shift BLADDER MANAGEMENT - SCORE: 7-IND BOWEL MANAGEMENT: Activity did not occur on this shift BOWEL MANAGEMENT - SCORE: 7-IND TRANSFERS: BED, CHAIR, WHEELCHAIR: TRANSFERS: BED, CHAIR, WHEELCHAIR - STEP 1: Does the patient require assistance of a person or device, or need extra time with bed, chair, or whe elchair transfers? Yes. TRANSFERS: BED, CHAIR, WHEELCHAIR - STEP 2: Does the patient require the assistance of a helper? No. Patient only requires an assistive device fo r bed, chair, wheelchair transfers such as a sliding board, grab bar, or brace, OR s/he takes more th an reasonable time, OR there is a safety concern when s/he performs the transfers TRANSFERS: BED, CHAIR, WHEELCHAIR - SCORE: 6-NASIM TRANSFERS: TOILET: TRANSFERS: TOILET - STEP 1: Does the patient require the assistance of a person or device, or need extra time with toilet transfe rs? Yes. TRANSFERS: TOILET - STEP 2: Does the patient require the assistance of a helper? No. Patient only requires an assistive device feliciano ch as a grab bar or special seat, OR s/he takes more than reasonable time to perform toilet transfers , OR there is a safety concern when s/he performs toilet transfers. TRANSFERS: TOILET - SCORE: 6-NASIM TRANSFERS: SHOWER: Activity did not occur on this shift TRANSFERS: SHOWER - SCORE: 0-UNK TRANSFERS: TUB: Activity did not occur on this shift TRANSFERS: TUB - SCORE: 0-UNK LOCOMOTION: WALK: LOCOMOTION: WALK - STEP 1: Does the patient need help from a person or device, or need extra time to walk 150 feet? No. LOCOMOTION: WALK - STEP 2: Does the patient need an assistive device (such as an orthosis, prosthesis, crutches, or walker) to g o 150 feet, OR does s/he take more than reasonable time, OR is there a concern for safety? Yes, the p atient needs an assistive device LOCOMOTION: WALK - SCORE: 6-NASIM LOCOMOTION: WHEELCHAIR: Activity did not occur on this shift LOCOMOTION: WHEELCHAIR - SCORE: 0-UNK LOCOMOTION: STAIRS: LOCOMOTION: STAIRS - STEP 1: Does the patient need help to go up and down 12 to 14 stairs? No. LOCOMOTION: STAIRS - STEP 2: Does the patient require an assistive device - such as handrails or cane - to go up and down one flig ht of stairs, OR does s/he take more than reasonable time, OR is there a concern for safety? Yes, the patient requires an assistive device LOCOMOTION: STAIRS - SCORE: 6-NASIM COMPREHENSION: COMPREHENSION - SCORE: 0-UNK EXPRESSION EXPRESSION - SCORE: 0-UNK SOCIAL INTERACTION: SOCIAL INTERACTION - SCORE: 0-UNK PROBLEM SOLVING: PROBLEM SOLVING - SCORE: 0-UNK MEMORY: MEMORY - SCORE: 0-UNK SIGNATURE PANEL: The following modified sections: Transfers: Bed, Chair, Wheelchair - Score, Transfers: Toilet - Score , Locomotion: Walk - Score, Locomotion: Wheelchair - Score, Locomotion: Stairs - Score were [electron orin] signed by Eulalio Salamanca PT on FriNov 06 2018 08:26:15 GMT-0500 (Central Daylight Time)
--- NOTE | 2018-11-06 09:52 | P.RH.PN ---
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, Transfers, Self Care Vital Signs: Last Vital Signs Temp 98.3 F 11/05/18 20:00 Pulse 76 11/05/18 20:00 Resp 16 11/05/18 20:00 BP 151/78 H 11/05/18 20:00 Pulse Ox 98 11/05/18 20:00 Laboratory: Laboratory Last Values WBC 8.0 K/uL (4.3-10.9) 11/05/18 06:21 RBC 4.10 M/uL (4.33-5.43) L 11/05/18 06:21 Hgb 13.3 g/dL (13.6-17.9) L 11/05/18 06:21 Hct 38.2 % (39.6-49.0) L 11/05/18 06:21 MCV 93.0 fL (80-100) 11/05/18 06:21 MCH 32.4 pg (27.0-35.0) 11/05/18 06:21 MCHC 34.8 g/dL (32.0-36.0) 11/05/18 06:21 RDW 12.9 % (12.1-15.2) 11/05/18 06:21 Plt Count 183 K/uL (152-406) D 11/05/18 06:21 MPV 9.5 fL (7.6-11.3) 11/05/18 06:21 Neutrophils % 66.2 % (41.7-73.7) 11/05/18 06:21 Lymphocytes % 21.5 % (15.3-44.8) 11/05/18 06:21 Monocytes % 7.3 % (3.3-12.3) 11/05/18 06:21 Eosinophils % 4.0 % (0-4.4) 11/05/18 06:21 Basophils % 1.0 % (0-1.3) 11/05/18 06:21 Absolute Neutrophils 5.3 K/uL (1.8-8.0) 11/05/18 06:21 Absolute Lymphocytes 1.7 K/uL (0.7-4.9) 11/05/18 06:21 Absolute Monocytes 0.6 K/uL (0.1-1.3) 11/05/18 06:21 Absolute Eosinophils 0.3 K/uL (0-0.5) 11/05/18 06:21 Absolute Basophils 0.1 K/uL (0-0.5) 11/05/18 06:21 Sodium 140 mmol/L (136-145) 11/05/18 06:21 Potassium 4.2 mmol/L (3.5-5.1) 11/05/18 06:21 Chloride 106 mmol/L (98-107) 11/05/18 06:21 Carbon Dioxide 27 mmol/L (21-32) 11/05/18 06:21 BUN 13 mg/dL (7-18) 11/05/18 06:21 Creatinine 1.09 mg/dL (0.55-1.3) 11/05/18 06:21 Estimated GFR 67 mL/min (=/>90) L 11/05/18 06:21 Glucose 205 mg/dL (74-106) H 11/05/18 06:21 Calcium 8.8 mg/dL (8.5-10.1) 11/05/18 06:21 Magnesium 2.5 mg/dL (1.8-2.4) H 11/05/18 06:21 Albumin 3.2 g/dL (3.4-5.0) L 11/05/18 06:21 Prealbumin 14.8 mg/dL (20-40) L 11/05/18 06:21 Weight: 240 lb Wound Present: No Negative Pressure Wound Therapy Present: No Physician Update: Labs are good. He is modified independent with gait and stairs. May discharge on next Friday. Medical Issues: DVT Prophylaxis - Enoxaparin 40mg SQ Daily Pain Issues: Tylenol 500mg Q6H PRN PO Functional Improvement: pt presents with severe strength deficits in the R LE. pt exhibits reduced trunk strength. pt demonstrates reduced balance and stability during ambulation and functional transfers. pt c/o pain in his R LE, which limits function. pt experiences poor tolerance to functional activity due to pain, weakness, and fatigue. Functional Improvement Occupational Therapy: Patient demonstrates great participation with OT, and is very motivated to improve current level of function to his prior level of function. For that, patient will need to improve overall endurance, as he has been limited with overall mobility due to surgery, and will need education with use of adaptive equipment for safety during IADL tasks prior to a safe discharge home. 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 Please see the Rehabilitation Signature page for all necessary signatures.
--- NOTE | 2018-11-06 17:41 | FAST ---
SHIFT START DATE/TIME: 11/06/2018 07:00 (CDT) SHIFT END DATE/TIME: 11/06/2018 19:00 (CDT) NAME HELADIO OTOOLE DATE OF : 1945 DATE OF ADMISSION: 11/04/2018 13:52 (CDT) PHONE: AGE: 72 N# [id number] GENDER: Male ENCOUNTER PHYSICIAN: Dr. Kenneth Zaragoza M.D. ADMISSION DIAGNOSIS: - Orthopaedic Disorders 08 - Unilateral Hip Fracture (.) Closed, displaced intertrochanteric right hip fx. EATING: EATING - STEP 1: Does the patient require the assistance of a person or device, or need extra time when eating? No. EATING - SCORE: 7-IND GROOMING: GROOMING - STEP 1: Does the patient require the assistance of a person or device, or need extra time when grooming? No. GROOMING - SCORE: 7-IND BATHING: Activity did not occur on this shift BATHING - SCORE: 0-UNK DRESSING - UPPER BODY: T-shirt/pullover shirt (four steps) ARTICLES SCORE Total number of steps: 4 DRESSING - UPPER BODY - STEP 1: Does the patient require help from a person or device, or need extra time when dressing above the [address]? No. DRESSING - UPPER BODY - SCORE: 7-IND DRESSING - LOWER BODY: Underwear (three steps) Zippered pants (four steps) ARTICLES SCORE Total number of steps: 7 DRESSING - LOWER BODY - STEP 1: Does the patient require help from a person or device, or need extra time when dressing below the [address]? Yes. DRESSING - LOWER BODY - STEP 2: Does the patient require the assistance of a helper? No. Patient requires an assistive device such as a retail department supervisor. OR s/he takes more than reasonable time as s/he dresses the lower body, OR there is a con cern for safety when s/he dresses the lower body DRESSING - LOWER BODY - SCORE: 6-NASIM TOILETING: TOILETING - STEP 1: Does the patient require the assistance of a person or device, or need extra time with toileting? Yes . TOILETING - STEP 2: Does the patient require the assistance of a helper? No. TOILETING - SCORE: 6-NASIM BLADDER MANAGEMENT: BLADDER MANAGEMENT - STEP 1: Does the patient control the bladder completely and intentionally without equipment or devices or med ications, and is always continent? Yes. BLADDER MANAGEMENT - SCORE: 7-IND BLADDER MANAGEMENT - FREQUENCY OF ACCIDENTS: BLADDER MANAGEMENT(FA) - STEP 1: How many accidents has the patient had during the current shift? 0 BOWEL MANAGEMENT: BOWEL MANAGEMENT - STEP 1: Does the patient control bowels completely and intentionally without equipment devices or medications AND is always continent? Yes. BOWEL MANAGEMENT - SCORE: 7-IND BOWEL MANAGEMENT - FREQUENCY OF ACCIDENTS: BOWEL MANAGEMENT(FA) - STEP 1: How many accidents has the patient had during the current shift? 0 TRANSFERS: BED, CHAIR, WHEELCHAIR: TRANSFERS: BED, CHAIR, WHEELCHAIR - STEP 1: Does the patient require assistance of a person or device, or need extra time with bed, chair, or whe elchair transfers? Yes. TRANSFERS: BED, CHAIR, WHEELCHAIR - STEP 2: Does the patient require the assistance of a helper? No. Patient only requires an assistive device fo r bed, chair, wheelchair transfers such as a sliding board, grab bar, or brace, OR s/he takes more th an reasonable time, OR there is a safety concern when s/he performs the transfers TRANSFERS: BED, CHAIR, WHEELCHAIR - SCORE: 6-NASIM TRANSFERS: TOILET: TRANSFERS: TOILET - STEP 1: Does the patient require the assistance of a person or device, or need extra time with toilet transfe rs? Yes. TRANSFERS: TOILET - STEP 2: Does the patient require the assistance of a helper? No. Patient only requires an assistive device feliciano ch as a grab bar or special seat, OR s/he takes more than reasonable time to perform toilet transfers , OR there is a safety concern when s/he performs toilet transfers. TRANSFERS: TOILET - SCORE: 6-NASIM TRANSFERS: SHOWER: Activity did not occur on this shift TRANSFERS: SHOWER - SCORE: 0-UNK TRANSFERS: TUB: Activity did not occur on this shift TRANSFERS: TUB - SCORE: 0-UNK LOCOMOTION: WALK: Activity did not occur on this shift LOCOMOTION: WALK - SCORE: 0-UNK LOCOMOTION: WHEELCHAIR: Activity did not occur on this shift LOCOMOTION: WHEELCHAIR - SCORE: 0-UNK COMPREHENSION: COMPREHENSION - SCORE: 0-UNK EXPRESSION EXPRESSION - SCORE: 0-UNK SOCIAL INTERACTION: SOCIAL INTERACTION - SCORE: 0-UNK PROBLEM SOLVING: PROBLEM SOLVING - SCORE: 0-UNK MEMORY: MEMORY - SCORE: 0-UNK SIGNATURE PANEL: The following modified sections: Eating - Score, Grooming - Score, Bathing - Score, Dressing - Upper Body - Score, Dressing - Lower Body - Score, Toileting - Score, Bladder Management - Score, Bowel Man agement - Score, Transfers: Bed, Chair, Wheelchair - Score, Transfers: Toilet - Score, Transfers: Lillian wer - Score, Transfers: Tub - Score, Locomotion: Walk - Score, Locomotion: Wheelchair - Score, Compre hension - Score, Expression - Score, Social Interaction - Score, Problem Solving - Score, Memory - Sc ore were [electronically] signed by Brooke Gates CNA on FriNov 06 2018 17:39:38 T-0500 (Centra l Daylight Time)
[2018-11-06] MEDS: PROMOD 30 ML DOSE PO SCH (20:00)
--- NOTE | 2018-11-07 02:08 | FAST ---
SHIFT START DATE/TIME: 11/06/2018 19:00 (CDT) SHIFT END DATE/TIME: 11/07/2018 07:00 (CDT) NAME HELADIO OTOOLE DATE OF : 1945 DATE OF ADMISSION: 11/04/2018 13:52 (CDT) PHONE: AGE: 72 SSN# [id number] GENDER: Male ENCOUNTER PHYSICIAN: Dr. Kenneth Zaragoza M.D. ADMISSION DIAGNOSIS: - Orthopaedic Disorders 08 - Unilateral Hip Fracture (11.01) Closed, displaced intertrochanteric right hip fx. EATING: Activity did not occur on this shift EATING - SCORE: 0-UNK GROOMING: Activity did not occur on this shift GROOMING - SCORE: 0-UNK BATHING: Activity did not occur on this shift BATHING - SCORE: 0-UNK DRESSING - UPPER BODY: Patient is not dressing in public clothing ARTICLES SCORE Total number of steps: 0 DRESSING - UPPER BODY - SCORE: 0-UNK DRESSING - LOWER BODY: Patient is not dressing in public clothing ARTICLES SCORE Total number of steps: 0 DRESSING - LOWER BODY - SCORE: 0-UNK TOILETING: TOILETING - STEP 1: Does the patient require the assistance of a person or device, or need extra time with toileting? Yes . TOILETING - STEP 2: Does the patient require the assistance of a helper? Yes. TOILETING - STEP 3: How much assistance does the patient require from the helper? Only supervision TOILETING - SCORE: 5-SUP BLADDER MANAGEMENT: BLADDER MANAGEMENT - STEP 1: Does the patient control the bladder completely and intentionally without equipment or devices or med ications, and is always continent? No. BLADDER MANAGEMENT - STEP 2: Does the patient require the assistance of a helper? No, patient requires and independently uses an a ssistive device, such as a urinal, bedpan, bedside commode, catheter, absorbent pad, or collecting de vice BLADDER MANAGEMENT - SCORE: 6-NASIM BOWEL MANAGEMENT: Activity did not occur on this shift BOWEL MANAGEMENT - SCORE: 7-IND TRANSFERS: BED, CHAIR, WHEELCHAIR: Activity did not occur on this shift TRANSFERS: BED, CHAIR, WHEELCHAIR - SCORE: 0-UNK TRANSFERS: TOILET: Activity did not occur on this shift TRANSFERS: TOILET - SCORE: 0-UNK TRANSFERS: SHOWER: Activity did not occur on this shift TRANSFERS: SHOWER - SCORE: 0-UNK TRANSFERS: TUB: Activity did not occur on this shift TRANSFERS: TUB - SCORE: 0-UNK LOCOMOTION: WALK: Activity did not occur on this shift LOCOMOTION: WALK - SCORE: 0-UNK LOCOMOTION: WHEELCHAIR: Activity did not occur on this shift LOCOMOTION: WHEELCHAIR - SCORE: 0-UNK COMPREHENSION: COMPREHENSION: TYPE: Both COMPREHENSION - STEP 1: Does the patient require help from a person or device, or need extra time to understand complex and a bstract ideas (such as current events, finances, discharge planning, medical issues, relationships, e tc)? No. COMPREHENSION - STEP 2: Does the patient need extra time, require an assistive device (such as glasses for visual comprehensi on or a hearing aid for auditory comprehension) or does s/he have mild difficulty understanding compl ex and abstract information? Yes. COMPREHENSION - SCORE: 6-NASIM EXPRESSION EXPRESSION: TYPE: Both EXPRESSION - STEP 1: Does the patient require help from a person or device, or need extra time expressing complex and abst ract ideas (such as current events, finances, discharge planning, medical issues, relationships, etc) ? No. EXPRESSION - STEP 2: Does the patient need extra time, require an assistive device (such as augmentive communication syste m or a communication board), OR does s/he have mild difficulty expressing complex and abstract ideas (including mild dysarthria or mild word-find problems)? Yes. EXPRESSION - SCORE: 6-NASIM SOCIAL INTERACTION: SOCIAL INTERACTION - STEP 1: Does the patient require a helper to interact with others in social and therapeutic situations? No. SOCIAL INTERACTION - STEP 2: Does the patient need extra time in social situations, OR does s/he interact with staff, other patien ts, and family members ONLY in structured environments, OR does s/he require medication for social in teraction? Yes, patient needs extra time SOCIAL INTERACTION - SCORE: 6-NASIM PROBLEM SOLVING: PROBLEM SOLVING - STEP 1: Does the patient need help from a person or device, or need extra time to solve complex problems such as managing a checking account or confronting interpersonal problems? No. PROBLEM SOLVING - STEP 2: Does the patient require extra time to make decisions or solve problems, OR does s/he have slight dif ficulty reading, initiating, or self-correcting in unfamiliar situations? Yes, patient needs extra ti me. PROBLEM SOLVING - SCORE: 6-NASIM MEMORY: MEMORY - STEP 1: Does the patient need help from a person or device, or need extra time to remember frequently encount ered people, daily routines, and executing requests? No. MEMORY - STEP 2: Does the patient have slight difficulty recognizing frequently encountered people, daily routines, or executing requests without the need for repetition or using self-initiated or environmental cues to remember? Yes. MEMORY - SCORE: 6-NASIM
[2018-11-07] MEDS: ENOXAPARIN 40 MG/0.4 ML SQ SCH (07:19)
[2018-11-07] MEDS: PROMOD 30 ML DOSE PO SCH ×2 (08:00→20:26)
--- NOTE | 2018-11-08 00:33 | FAST ---
SHIFT START DATE/TIME: 11/07/2018 19:00 (CDT) SHIFT END DATE/TIME: 11/08/2018 07:00 (CDT) NAME HELADIO OTOOLE DATE OF : 1945 DATE OF ADMISSION: 11/04/2018 13:52 (CDT) PHONE: AGE: 72 SSN# [id number] GENDER: Male ENCOUNTER PHYSICIAN: Dr. Kenneth Zaragoza M.D. ADMISSION DIAGNOSIS: - Orthopaedic Disorders 08 - Unilateral Hip Fracture (11.01) Closed, displaced intertrochanteric right hip fx. EATING: Activity did not occur on this shift EATING - SCORE: 0-UNK GROOMING: Activity did not occur on this shift GROOMING - SCORE: 0-UNK BATHING: Activity did not occur on this shift BATHING - SCORE: 0-UNK DRESSING - UPPER BODY: Patient is not dressing in public clothing ARTICLES SCORE Total number of steps: 0 DRESSING - UPPER BODY - SCORE: 0-UNK DRESSING - LOWER BODY: Patient is not dressing in public clothing ARTICLES SCORE Total number of steps: 0 DRESSING - LOWER BODY - SCORE: 0-UNK TOILETING: TOILETING - STEP 1: Does the patient require the assistance of a person or device, or need extra time with toileting? Yes . TOILETING - STEP 2: Does the patient require the assistance of a helper? Yes. TOILETING - STEP 3: How much assistance does the patient require from the helper? Only supervision TOILETING - SCORE: 5-SUP BLADDER MANAGEMENT: BLADDER MANAGEMENT - STEP 1: Does the patient control the bladder completely and intentionally without equipment or devices or med ications, and is always continent? Yes. BLADDER MANAGEMENT - SCORE: 7-IND BOWEL MANAGEMENT: BOWEL MANAGEMENT - STEP 1: Does the patient control bowels completely and intentionally without equipment devices or medications AND is always continent? No. BOWEL MANAGEMENT - STEP 2: Does the patient require the assistance of a helper? No, patient requires medication for control such as stool softeners, suppositories, laxatives, enemas, or OTC medications BOWEL MANAGEMENT - SCORE: 6-NASIM TRANSFERS: BED, CHAIR, WHEELCHAIR: TRANSFERS: BED, CHAIR, WHEELCHAIR - STEP 1: Does the patient require assistance of a person or device, or need extra time with bed, chair, or whe elchair transfers? Yes. TRANSFERS: BED, CHAIR, WHEELCHAIR - STEP 2: Does the patient require the assistance of a helper? No. Patient only requires an assistive device fo r bed, chair, wheelchair transfers such as a sliding board, grab bar, or brace, OR s/he takes more th an reasonable time, OR there is a safety concern when s/he performs the transfers TRANSFERS: BED, CHAIR, WHEELCHAIR - SCORE: 6-NASIM TRANSFERS: TOILET: TRANSFERS: TOILET - STEP 1: Does the patient require the assistance of a person or device, or need extra time with toilet transfe rs? Yes. TRANSFERS: TOILET - STEP 2: Does the patient require the assistance of a helper? No. Patient only requires an assistive device feliciano ch as a grab bar or special seat, OR s/he takes more than reasonable time to perform toilet transfers , OR there is a safety concern when s/he performs toilet transfers. TRANSFERS: TOILET - SCORE: 6-NASIM TRANSFERS: SHOWER: Activity did not occur on this shift TRANSFERS: SHOWER - SCORE: 0-UNK TRANSFERS: TUB: Activity did not occur on this shift TRANSFERS: TUB - SCORE: 0-UNK LOCOMOTION: WALK: Activity did not occur on this shift LOCOMOTION: WALK - SCORE: 0-UNK LOCOMOTION: WHEELCHAIR: Activity did not occur on this shift LOCOMOTION: WHEELCHAIR - SCORE: 0-UNK COMPREHENSION: COMPREHENSION: TYPE: Both COMPREHENSION - STEP 1: Does the patient require help from a person or device, or need extra time to understand complex and a bstract ideas (such as current events, finances, discharge planning, medical issues, relationships, e tc)? No. COMPREHENSION - STEP 2: Does the patient need extra time, require an assistive device (such as glasses for visual comprehensi on or a hearing aid for auditory comprehension) or does s/he have mild difficulty understanding compl ex and abstract information? Yes. COMPREHENSION - SCORE: 6-NASIM EXPRESSION EXPRESSION: TYPE: Both EXPRESSION - STEP 1: Does the patient require help from a person or device, or need extra time expressing complex and abst ract ideas (such as current events, finances, discharge planning, medical issues, relationships, etc) ? No. EXPRESSION - STEP 2: Does the patient need extra time, require an assistive device (such as augmentive communication syste m or a communication board), OR does s/he have mild difficulty expressing complex and abstract ideas (including mild dysarthria or mild word-find problems)? No. EXPRESSION - SCORE: 7-IND SOCIAL INTERACTION: SOCIAL INTERACTION - STEP 1: Does the patient require a helper to interact with others in social and therapeutic situations? No. SOCIAL INTERACTION - STEP 2: Does the patient need extra time in social situations, OR does s/he interact with staff, other patien ts, and family members ONLY in structured environments, OR does s/he require medication for social in teraction? Yes, patient needs extra time SOCIAL INTERACTION - SCORE: 6-NASIM PROBLEM SOLVING: PROBLEM SOLVING - STEP 1: Does the patient need help from a person or device, or need extra time to solve complex problems such as managing a checking account or confronting interpersonal problems? No. PROBLEM SOLVING - STEP 2: Does the patient require extra time to make decisions or solve problems, OR does s/he have slight dif ficulty reading, initiating, or self-correcting in unfamiliar situations? Yes, patient needs extra ti me. PROBLEM SOLVING - SCORE: 6-NASIM MEMORY: MEMORY - STEP 1: Does the patient need help from a person or device, or need extra time to remember frequently encount ered people, daily routines, and executing requests? No. MEMORY - STEP 2: Does the patient have slight difficulty recognizing frequently encountered people, daily routines, or executing requests without the need for repetition or using self-initiated or environmental cues to remember? Yes. MEMORY - SCORE: 6-NASIM SIGNATURE PANEL: The following modified sections: Eating - Score, Grooming - Score, Dressing - Upper Body - Score, Wiilam ssing - Lower Body - Score, Toileting - Score, Bladder Management - Score, Bowel Management - Score, Transfers: Bed, Chair, Wheelchair - Score, Transfers: Toilet - Score, Transfers: Shower - Score, Rangel sfers: Tub - Score, Locomotion: Walk - Score, Locomotion: Wheelchair - Score, Comprehension - Score, Expression - Score, Social Interaction - Score, Problem Solving - Score, Memory - Score were [electro nically] signed by Hannah Guzman CNA on FriNov 08 2018 00:32:06 T-0500 (Central Daylight Time)
[2018-11-08] MEDS: ENOXAPARIN 40 MG/0.4 ML SQ SCH (09:17)
[2018-11-08] MEDS: PROMOD 30 ML DOSE PO SCH ×2 (09:19→20:44)
--- NOTE | 2018-11-09 01:57 | FAST ---
SHIFT START DATE/TIME: 11/08/2018 19:00 (CDT) SHIFT END DATE/TIME: 11/09/2018 07:00 (CDT) NAME HELADIO OTOOLE DATE OF : 1945 DATE OF ADMISSION: 11/04/2018 13:52 (CDT) PHONE: AGE: 72 SSN# [id number] GENDER: Male ENCOUNTER PHYSICIAN: Dr. Kenneth Zaragoza M.D. ADMISSION DIAGNOSIS: - Orthopaedic Disorders 08 - Unilateral Hip Fracture (11.01) Closed, displaced intertrochanteric right hip fx. EATING: Activity did not occur on this shift EATING - SCORE: 0-UNK GROOMING: Activity did not occur on this shift GROOMING - SCORE: 0-UNK BATHING: Activity did not occur on this shift BATHING - SCORE: 0-UNK DRESSING - UPPER BODY: Patient is not dressing in public clothing ARTICLES SCORE Total number of steps: 0 DRESSING - UPPER BODY - SCORE: 0-UNK DRESSING - LOWER BODY: Patient is not dressing in public clothing ARTICLES SCORE Total number of steps: 0 DRESSING - LOWER BODY - SCORE: 0-UNK TOILETING: TOILETING - STEP 1: Does the patient require the assistance of a person or device, or need extra time with toileting? Yes . TOILETING - STEP 2: Does the patient require the assistance of a helper? Yes. TOILETING - STEP 3: How much assistance does the patient require from the helper? Only supervision TOILETING - SCORE: 5-SUP BLADDER MANAGEMENT: BLADDER MANAGEMENT - STEP 1: Does the patient control the bladder completely and intentionally without equipment or devices or med ications, and is always continent? Yes. BLADDER MANAGEMENT - SCORE: 7-IND BOWEL MANAGEMENT: BOWEL MANAGEMENT - STEP 1: Does the patient control bowels completely and intentionally without equipment devices or medications AND is always continent? No. BOWEL MANAGEMENT - STEP 2: Does the patient require the assistance of a helper? No, patient requires medication for control such as stool softeners, suppositories, laxatives, enemas, or OTC medications BOWEL MANAGEMENT - SCORE: 6-NASIM TRANSFERS: BED, CHAIR, WHEELCHAIR: TRANSFERS: BED, CHAIR, WHEELCHAIR - STEP 1: Does the patient require assistance of a person or device, or need extra time with bed, chair, or whe elchair transfers? Yes. TRANSFERS: BED, CHAIR, WHEELCHAIR - STEP 2: Does the patient require the assistance of a helper? No. Patient only requires an assistive device fo r bed, chair, wheelchair transfers such as a sliding board, grab bar, or brace, OR s/he takes more th an reasonable time, OR there is a safety concern when s/he performs the transfers TRANSFERS: BED, CHAIR, WHEELCHAIR - SCORE: 6-NASIM TRANSFERS: TOILET: Activity did not occur on this shift TRANSFERS: TOILET - SCORE: 0-UNK TRANSFERS: SHOWER: Activity did not occur on this shift TRANSFERS: SHOWER - SCORE: 0-UNK TRANSFERS: TUB: Activity did not occur on this shift TRANSFERS: TUB - SCORE: 0-UNK LOCOMOTION: WALK: Activity did not occur on this shift LOCOMOTION: WALK - SCORE: 0-UNK LOCOMOTION: WHEELCHAIR: Activity did not occur on this shift LOCOMOTION: WHEELCHAIR - SCORE: 0-UNK COMPREHENSION: COMPREHENSION: TYPE: Both COMPREHENSION - STEP 1: Does the patient require help from a person or device, or need extra time to understand complex and a bstract ideas (such as current events, finances, discharge planning, medical issues, relationships, e tc)? No. COMPREHENSION - STEP 2: Does the patient need extra time, require an assistive device (such as glasses for visual comprehensi on or a hearing aid for auditory comprehension) or does s/he have mild difficulty understanding compl ex and abstract information? Yes. COMPREHENSION - SCORE: 6-NASIM EXPRESSION EXPRESSION: TYPE: Both EXPRESSION - STEP 1: Does the patient require help from a person or device, or need extra time expressing complex and abst ract ideas (such as current events, finances, discharge planning, medical issues, relationships, etc) ? No. EXPRESSION - STEP 2: Does the patient need extra time, require an assistive device (such as augmentive communication syste m or a communication board), OR does s/he have mild difficulty expressing complex and abstract ideas (including mild dysarthria or mild word-find problems)? No. EXPRESSION - SCORE: 7-IND SOCIAL INTERACTION: SOCIAL INTERACTION - STEP 1: Does the patient require a helper to interact with others in social and therapeutic situations? No. SOCIAL INTERACTION - STEP 2: Does the patient need extra time in social situations, OR does s/he interact with staff, other patien ts, and family members ONLY in structured environments, OR does s/he require medication for social in teraction? Yes, patient needs extra time SOCIAL INTERACTION - SCORE: 6-NASIM PROBLEM SOLVING: PROBLEM SOLVING - STEP 1: Does the patient need help from a person or device, or need extra time to solve complex problems such as managing a checking account or confronting interpersonal problems? No. PROBLEM SOLVING - STEP 2: Does the patient require extra time to make decisions or solve problems, OR does s/he have slight dif ficulty reading, initiating, or self-correcting in unfamiliar situations? Yes, patient needs extra ti me. PROBLEM SOLVING - SCORE: 6-NASIM MEMORY: MEMORY - STEP 1: Does the patient need help from a person or device, or need extra time to remember frequently encount ered people, daily routines, and executing requests? No. MEMORY - STEP 2: Does the patient have slight difficulty recognizing frequently encountered people, daily routines, or executing requests without the need for repetition or using self-initiated or environmental cues to remember? Yes. MEMORY - SCORE: 6-NASIM SIGNATURE PANEL: The following modified sections: Eating - Score, Grooming - Score, Dressing - Upper Body - Score, Wiliam ssing - Lower Body - Score, Toileting - Score, Bladder Management - Score, Bowel Management - Score, Transfers: Bed, Chair, Wheelchair - Score, Transfers: Toilet - Score, Transfers: Shower - Score, Rangel sfers: Tub - Score, Locomotion: Walk - Score, Locomotion: Wheelchair - Score, Comprehension - Score, Expression - Score, Social Interaction - Score, Problem Solving - Score, Memory - Score were [electro nically] signed by Hannah Guzman CNA on FriNov 09 2018 01:56:24 GMT-0500 (Central Daylight Time)
[2018-11-09] MEDS: ENOXAPARIN 40 MG/0.4 ML SQ SCH (07:31)
[2018-11-09] MEDS: PROMOD 30 ML DOSE PO SCH ×2 (07:31→20:17)
--- NOTE | 2018-11-09 15:20 | FAST ---
SHIFT START DATE/TIME: 11/09/2018 07:00 (CDT) SHIFT END DATE/TIME: 11/09/2018 19:00 (CDT) NAME HELADIO OTOOLE DATE OF : 1945 DATE OF ADMISSION: 11/04/2018 13:52 (CDT) PHONE: AGE: 72 N# [id number] GENDER: Male ENCOUNTER PHYSICIAN: Dr. Kenneth Zaragoza M.D. ADMISSION DIAGNOSIS: - Orthopaedic Disorders 08 - Unilateral Hip Fracture (.) Closed, displaced intertrochanteric right hip fx. EATING: EATING - STEP 1: Does the patient require the assistance of a person or device, or need extra time when eating? No. EATING - SCORE: 7-IND GROOMING: Comb/brush hair Oral care Wash, rinse, and dry hands GROOMING - STEP 1: Does the patient require the assistance of a person or device, or need extra time when grooming? No. GROOMING - SCORE: 7-IND BATHING: Activity did not occur on this shift BATHING - SCORE: 0-UNK DRESSING - UPPER BODY: Activity did not occur on this shift ARTICLES SCORE Total number of steps: 0 DRESSING - UPPER BODY - SCORE: 0-UNK DRESSING - LOWER BODY: Activity did not occur on this shift ARTICLES SCORE Total number of steps: 0 DRESSING - LOWER BODY - SCORE: 0-UNK TOILETING: TOILETING - STEP 1: Does the patient require the assistance of a person or device, or need extra time with toileting? Yes . TOILETING - STEP 2: Does the patient require the assistance of a helper? No. TOILETING - SCORE: 6-NASIM BLADDER MANAGEMENT: BLADDER MANAGEMENT - STEP 1: Does the patient control the bladder completely and intentionally without equipment or devices or med ications, and is always continent? Yes. BLADDER MANAGEMENT - SCORE: 7-IND BOWEL MANAGEMENT: Activity did not occur on this shift BOWEL MANAGEMENT - SCORE: 7-IND TRANSFERS: BED, CHAIR, WHEELCHAIR: TRANSFERS: BED, CHAIR, WHEELCHAIR - STEP 1: Does the patient require assistance of a person or device, or need extra time with bed, chair, or whe elchair transfers? Yes. TRANSFERS: BED, CHAIR, WHEELCHAIR - STEP 2: Does the patient require the assistance of a helper? No. Patient only requires an assistive device fo r bed, chair, wheelchair transfers such as a sliding board, grab bar, or brace, OR s/he takes more th an reasonable time, OR there is a safety concern when s/he performs the transfers TRANSFERS: BED, CHAIR, WHEELCHAIR - SCORE: 6-NASIM TRANSFERS: TOILET: TRANSFERS: TOILET - STEP 1: Does the patient require the assistance of a person or device, or need extra time with toilet transfe rs? Yes. TRANSFERS: TOILET - STEP 2: Does the patient require the assistance of a helper? No. Patient only requires an assistive device feliciano ch as a grab bar or special seat, OR s/he takes more than reasonable time to perform toilet transfers , OR there is a safety concern when s/he performs toilet transfers. TRANSFERS: TOILET - SCORE: 6-NASIM TRANSFERS: SHOWER: Activity did not occur on this shift TRANSFERS: SHOWER - SCORE: 0-UNK TRANSFERS: TUB: Activity did not occur on this shift TRANSFERS: TUB - SCORE: 0-UNK LOCOMOTION: WALK: Activity did not occur on this shift LOCOMOTION: WALK - SCORE: 0-UNK LOCOMOTION: WHEELCHAIR: Activity did not occur on this shift LOCOMOTION: WHEELCHAIR - SCORE: 0-UNK COMPREHENSION: COMPREHENSION: TYPE: Both COMPREHENSION - STEP 1: Does the patient require help from a person or device, or need extra time to understand complex and a bstract ideas (such as current events, finances, discharge planning, medical issues, relationships, e tc)? No. COMPREHENSION - STEP 2: Does the patient need extra time, require an assistive device (such as glasses for visual comprehensi on or a hearing aid for auditory comprehension) or does s/he have mild difficulty understanding compl ex and abstract information? No. COMPREHENSION - SCORE: 7-IND EXPRESSION EXPRESSION: TYPE: Both EXPRESSION - STEP 1: Does the patient require help from a person or device, or need extra time expressing complex and abst ract ideas (such as current events, finances, discharge planning, medical issues, relationships, etc) ? No. EXPRESSION - STEP 2: Does the patient need extra time, require an assistive device (such as augmentive communication syste m or a communication board), OR does s/he have mild difficulty expressing complex and abstract ideas (including mild dysarthria or mild word-find problems)? No. EXPRESSION - SCORE: 7-IND SOCIAL INTERACTION: SOCIAL INTERACTION - STEP 1: Does the patient require a helper to interact with others in social and therapeutic situations? No. SOCIAL INTERACTION - STEP 2: Does the patient need extra time in social situations, OR does s/he interact with staff, other patien ts, and family members ONLY in structured environments, OR does s/he require medication for social in teraction? No. SOCIAL INTERACTION - SCORE: 7-IND PROBLEM SOLVING: PROBLEM SOLVING - STEP 1: Does the patient need help from a person or device, or need extra time to solve complex problems such as managing a checking account or confronting interpersonal problems? No. PROBLEM SOLVING - STEP 2: Does the patient require extra time to make decisions or solve problems, OR does s/he have slight dif ficulty reading, initiating, or self-correcting in unfamiliar situations? No. PROBLEM SOLVING - SCORE: 7-IND MEMORY: MEMORY - STEP 1: Does the patient need help from a person or device, or need extra time to remember frequently encount ered people, daily routines, and executing requests? No. MEMORY - STEP 2: Does the patient have slight difficulty recognizing frequently encountered people, daily routines, or executing requests without the need for repetition or using self-initiated or environmental cues to remember? No. MEMORY - SCORE: 7-IND SIGNATURE PANEL: The following modified sections: Eating - Score, Grooming - Score, Bathing - Score, Dressing - Upper Body - Score, Dressing - Lower Body - Score, Toileting - Score, Bladder Management - Score, Bowel Man agement - Score, Transfers: Bed, Chair, Wheelchair - Score, Transfers: Toilet - Score, Transfers: Lillian wer - Score, Transfers: Tub - Score, Locomotion: Walk - Score, Locomotion: Wheelchair - Score, Compre hension - Score, Expression - Score, Social Interaction - Score, Problem Solving - Score, Memory - Sc ore were [electronically] signed by Aurelio Balderas on FriNov 09 2018 15:19:45 GMT-0500 (Central Daylight Time)
--- NOTE | 2018-11-09 15:27 | FAST ---
ENCOUNTER DATE AND TIME: 11/09/2018 08:00 (CDT) NAME HELADIO OTOOLE DATE OF : 1945 DATE OF ADMISSION: 11/04/2018 13:52 (CDT) PHONE: AGE: 72 SSN# [id number] GENDER: Male ENCOUNTER PHYSICIAN: Dr. Kenneth Zaragoza M.D. ADMISSION DIAGNOSIS: - Orthopaedic Disorders 08 - Unilateral Hip Fracture (11.01) Closed, displaced intertrochanteric right hip fx. EATING: Activity did not occur on this shift EATING - SCORE: 0-UNK GROOMING: Activity did not occur on this shift GROOMING - SCORE: 0-UNK BATHING: Activity did not occur on this shift BATHING - SCORE: 0-UNK DRESSING - UPPER BODY: Activity did not occur on this shift Patient is not dressing in public clothing ARTICLES SCORE Total number of steps: 0 DRESSING - UPPER BODY - SCORE: 0-UNK DRESSING - LOWER BODY: Activity did not occur on this shift Patient is not dressing in public clothing ARTICLES SCORE Total number of steps: 0 DRESSING - LOWER BODY - SCORE: 0-UNK TOILETING: Activity did not occur on this shift TOILETING - SCORE: 0-UNK BLADDER MANAGEMENT: Activity did not occur on this shift BLADDER MANAGEMENT - SCORE: 7-IND BOWEL MANAGEMENT: Activity did not occur on this shift BOWEL MANAGEMENT - SCORE: 7-IND TRANSFERS: BED, CHAIR, WHEELCHAIR: TRANSFERS: BED, CHAIR, WHEELCHAIR - STEP 1: Does the patient require assistance of a person or device, or need extra time with bed, chair, or whe elchair transfers? Yes. TRANSFERS: BED, CHAIR, WHEELCHAIR - STEP 2: Does the patient require the assistance of a helper? No. Patient only requires an assistive device fo r bed, chair, wheelchair transfers such as a sliding board, grab bar, or brace, OR s/he takes more th an reasonable time, OR there is a safety concern when s/he performs the transfers TRANSFERS: BED, CHAIR, WHEELCHAIR - SCORE: 6-NASIM TRANSFERS: TOILET: Activity did not occur on this shift TRANSFERS: TOILET - SCORE: 0-UNK TRANSFERS: SHOWER: Activity did not occur on this shift TRANSFERS: SHOWER - SCORE: 0-UNK TRANSFERS: TUB: Activity did not occur on this shift TRANSFERS: TUB - SCORE: 0-UNK LOCOMOTION: WALK: LOCOMOTION: WALK - STEP 1: Does the patient need help from a person or device, or need extra time to walk 150 feet? No. LOCOMOTION: WALK - STEP 2: Does the patient need an assistive device (such as an orthosis, prosthesis, crutches, or walker) to g o 150 feet, OR does s/he take more than reasonable time, OR is there a concern for safety? Yes, the p atient needs an assistive device LOCOMOTION: WALK - SCORE: 6-NASIM LOCOMOTION: WHEELCHAIR: Activity did not occur on this shift LOCOMOTION: WHEELCHAIR - SCORE: 0-UNK LOCOMOTION: STAIRS: LOCOMOTION: STAIRS - STEP 1: Does the patient need help to go up and down 12 to 14 stairs? No. LOCOMOTION: STAIRS - STEP 2: Does the patient require an assistive device - such as handrails or cane - to go up and down one flig ht of stairs, OR does s/he take more than reasonable time, OR is there a concern for safety? Yes, the patient requires an assistive device LOCOMOTION: STAIRS - SCORE: 6-NASIM COMPREHENSION: COMPREHENSION - SCORE: 0-UNK EXPRESSION EXPRESSION - SCORE: 0-UNK SOCIAL INTERACTION: SOCIAL INTERACTION - SCORE: 0-UNK PROBLEM SOLVING: PROBLEM SOLVING - SCORE: 0-UNK MEMORY: MEMORY - SCORE: 0-UNK SIGNATURE PANEL: The following modified sections: Transfers: Bed, Chair, Wheelchair - Score, Transfers: Toilet - Score , Locomotion: Walk - Score, Locomotion: Wheelchair - Score, Locomotion: Stairs - Score were [electron [email or web address]] signed by Eulalio Salamanca PT on FriNov 09 2018 15:26:34 T-0500 (Central Daylight Time)
--- NOTE | 2018-11-09 18:20 | R.PN ---
ENCOUNTER DATE AND TIME: 11/09/2018 18:16 (CDT) NAME HELADIO OTOOLE DATE OF : 1945 DATE OF ADMISSION: 11/04/2018 13:52 (CDT) Closed, displaced intertrochanteric right hip fxCHIEF COMPLAINT: Right hip fracture. SUBJECTIVE: Pt denied any Shortness of Breath. Pt denied any depression. Ambulated 1000' with a rolling walker and up and down 20 steps with modified independence. VITAL SIGNS Temperature: 97.7 F SBP/DBP: 141/90 Pulse: 74 Resp: 14 MEDICATION ALLERGIES: No Known Drug Allergies (NKDA) ENVIRONMENTAL ALLERGIES: - Substance Allergies None Known - Other Allergies None Known NURSING: - Shower allowing shower - Skin care per protocol PRECAUTIONS: - Weight Bearing Precaution WBAT right LE ACTIVITIES OOB only with supervision THERAPIES: - Dietary and Nutrition Adequate Nutrition. Nutritional Education. Nutritional Supplements. PHYSICAL EXAM - Gen Alert and awake Lying in bed No apparent distress Oriented to: person, time, and place - Skin No breakdown No numbness - Eyes No abnormalities - ENMT No abnormalities - Neck No abnormalities - CVS RRR - Chest No abnormalities - Resp Clear to auscultation - Abd + bowel sounds - GI Soft Deferred - No abnormalities - Ext Trace edema in right leg and foot. - MSK 4+/5 weakness in right lower extremity - Neuro 4/5 strength right lower extremity. - Psych No abnormalities ASSESSMENT: Pt. is a 72 yo Right-handed white male.On 10/31/2018 he was admitted to [facility] emergency surgery for Closed, displaced intertrochanteric right hip fx (Unilateral Hip Fracture) by Irene Bergman.Pre-morbidly, Pt. was independent/mod-I in Self-Care, Sphincter Control, Transfers Cont rol, Locomotion, Communication, and Social Cognition; and he had good Sphincter Control and Endurance .Currently, he has deficits of Transfers Control, Locomotion, Communication, Social Cognition, Balanc e, Safety Awareness, and Self-Care.Pt. is now referred to [facility] for acute in-patient rehabilitation in order to maximize patient's functional independence in activities of da pat living, strength, ROM, and mobility.- Rehab Goal Patient has realistic goal of being discharged at assistance level 6-Andrea to reside at Home with Fam pat/Relatives. MDM/PLAN: - Physical Therapy Decreased range of motion - to improve, our physical therapists will perform initial evaluation of p t's status upon admission and devise an individualized program for increasing patient's Range of Bob on. Gait dysfunction - to improve, our physical therapists will perform initial evaluation of pt's statu s upon admission and devise an individualized program for Gait Training, and Wheel Chair mobility Inability to transfer - to improve, our physical therapists will perform initial evaluation of pt's status upon admission and devise an individualized program for Bed mobility Need for home safety evaluation - to improve, our physical therapists will perform initial evaluatio n of pt's status upon admission and devise an individualized program for Home Evaluation Need in caregiver upon discharge - to improve, our physical therapists will perform initial evaluati on of pt's status upon admission and devise an individualized program for Caregiver Training Edema - to improve, our physical therapists will perform initial evaluation of pt's status upon admis rick and devise an individualized program for Elevation Training, and Lymphedema Therapy New precaution - to improve, our physical therapists will perform initial evaluation of pt's status upon admission and devise an individualized program for Patient precaution education Poor balance - to improve, our physical therapists will perform initial evaluation of pt's status up on admission and devise an individualized program for Balance Training Achieving independence - to improve, our physical therapists will perform initial evaluation of pt's status upon admission and devise an individualized program for Community Reintegration Activities - Occupational Therapy ADL deficits - to improve, our occupation therapists will perform initial evaluation of pt's status upon admission and devise an individualized program for Bathing, Bed mobility, Community Reintegratio n, Cooking, Dressing, Eating, Fine Motor Skills, Grooming, Homemaking, Kitchen Mobility, Laundry, Pat ient Education, Safety Awareness, Splinting - Positioning, Transfers(Toilet, Tub, Shower), and Wheel Chair Management Cognitive deficits - to improve, our occupation therapists will perform initial evaluation of pt's s tatus upon admission and devise an individualized program for Cognition - orientation Need for career information specialist - to improve, our occupation therapists will perform initial evaluation of pt's status upon admission and devise an individualized program for Caregiver Training - Other See attached MAR (Medication Administration Record) - Anterior Hip Precaution No abduction No active extension No adduction across midline No external rotation No hip flexion >90 degrees No internal rotation - Diet - Liquid Texture Continue Regular - Tube Feed Continue N/A - Diet Type Continue Regular - Posterior Hip Precaution No adduction across midline No external rotation No hip flexion >90 degrees No internal rotation No wheel chair propulsion - Weight Bearing Precaution WBAT right LE - Skin care per protocol - Diet - Solid Texture Continue Regular - Shower allowing shower FUNCTIONAL STATUS: UPDATED AT WEEKLY TEAM CONFERENCE - Bladder Same accident frequency: 7-Ind - No accidents in the past 7 days - Bowel Same accident frequency: 7-Ind - No accidents in the past 7 days - Walking Same score based on distance walked: 0(N/A) - Wheelchair Same score based on distance traveled: 0(N/A) FUNCTIONAL STATUS: - Self-Care A. Eating Ind B. Grooming sup C. Bathing modA D. Dressing - Upper Ind E. Dressing - Lower Ind F. Toileting modA - Sphincter Control G: Bladder control Ind H: Bowel control Ind - Transfers Control I. Bed/Chair/Wheelchair Castro J. Toilet Castro K. Tub/Shower Castro - Locomotion L. Walk/Wheelchair (C) Castro L. Walk/Wheelchair (W) Castro M. Stairs ADNO - Communication N. Comprehension (B) sup O. Expression (B) sup - Social Cognition P. Social Interaction sup Q. Problem Solving sup R. Memory sup - Endurance Good - Balance Fair - Safety Awareness Fair CURRENT FUNC. DEFICITS: Transfers Control, Locomotion, Communication, Social Cognition, Balance, Safety Awareness, and Self-C are SIGNATURE PANEL: (CDT)
--- NOTE | 2018-11-10 02:13 | FAST ---
SHIFT START DATE/TIME: 11/09/2018 19:00 (CDT) SHIFT END DATE/TIME: 11/10/2018 07:00 (CDT) NAME HELADIO OTOOLE DATE OF : 1945 DATE OF ADMISSION: 11/04/2018 13:52 (CDT) PHONE: AGE: 72 SSN# [id number] GENDER: Male ENCOUNTER PHYSICIAN: Dr. Kenneth Zaragoza M.D. ADMISSION DIAGNOSIS: - Orthopaedic Disorders 08 - Unilateral Hip Fracture (.) Closed, displaced intertrochanteric right hip fx. EATING: Activity did not occur on this shift EATING - SCORE: 0-UNK GROOMING: Oral care Wash, rinse, and dry face Wash, rinse, and dry hands GROOMING - STEP 1: Does the patient require the assistance of a person or device, or need extra time when grooming? Yes. GROOMING - STEP 2: Does the patient require the assistance of a helper? No. The patient only requires an assistive devic e, OR takes more than reasonable time to groom, OR there is a concern for safety as the patient groom s GROOMING - SCORE: 6-NASIM BATHING: Activity did not occur on this shift BATHING - SCORE: 0-UNK DRESSING - UPPER BODY: Patient is not dressing in public clothing ARTICLES SCORE Total number of steps: 0 DRESSING - UPPER BODY - SCORE: 0-UNK DRESSING - LOWER BODY: Patient is not dressing in public clothing ARTICLES SCORE Total number of steps: 0 DRESSING - LOWER BODY - SCORE: 0-UNK TOILETING: TOILETING - STEP 1: Does the patient require the assistance of a person or device, or need extra time with toileting? Yes . TOILETING - STEP 2: Does the patient require the assistance of a helper? No. TOILETING - SCORE: 6-NASIM BLADDER MANAGEMENT: BLADDER MANAGEMENT - STEP 1: Does the patient control the bladder completely and intentionally without equipment or devices or med ications, and is always continent? No. BLADDER MANAGEMENT - STEP 2: Does the patient require the assistance of a helper? No, patient requires and independently uses an a ssistive device, such as a urinal, bedpan, bedside commode, catheter, absorbent pad, or collecting de vice BLADDER MANAGEMENT - SCORE: 6-NASIM BOWEL MANAGEMENT: Activity did not occur on this shift BOWEL MANAGEMENT - SCORE: 7-IND TRANSFERS: BED, CHAIR, WHEELCHAIR: Activity did not occur on this shift TRANSFERS: BED, CHAIR, WHEELCHAIR - SCORE: 0-UNK TRANSFERS: TOILET: Activity did not occur on this shift TRANSFERS: TOILET - SCORE: 0-UNK TRANSFERS: SHOWER: Activity did not occur on this shift TRANSFERS: SHOWER - SCORE: 0-UNK TRANSFERS: TUB: Activity did not occur on this shift TRANSFERS: TUB - SCORE: 0-UNK LOCOMOTION: WALK: Activity did not occur on this shift LOCOMOTION: WALK - SCORE: 0-UNK LOCOMOTION: WHEELCHAIR: Activity did not occur on this shift LOCOMOTION: WHEELCHAIR - SCORE: 0-UNK COMPREHENSION: COMPREHENSION: TYPE: Both COMPREHENSION - STEP 1: Does the patient require help from a person or device, or need extra time to understand complex and a bstract ideas (such as current events, finances, discharge planning, medical issues, relationships, e tc)? No. COMPREHENSION - STEP 2: Does the patient need extra time, require an assistive device (such as glasses for visual comprehensi on or a hearing aid for auditory comprehension) or does s/he have mild difficulty understanding compl ex and abstract information? Yes. COMPREHENSION - SCORE: 6-NASIM EXPRESSION EXPRESSION: TYPE: Both EXPRESSION - STEP 1: Does the patient require help from a person or device, or need extra time expressing complex and abst ract ideas (such as current events, finances, discharge planning, medical issues, relationships, etc) ? No. EXPRESSION - STEP 2: Does the patient need extra time, require an assistive device (such as augmentive communication syste m or a communication board), OR does s/he have mild difficulty expressing complex and abstract ideas (including mild dysarthria or mild word-find problems)? Yes. EXPRESSION - SCORE: 6-NASIM SOCIAL INTERACTION: SOCIAL INTERACTION - STEP 1: Does the patient require a helper to interact with others in social and therapeutic situations? No. SOCIAL INTERACTION - STEP 2: Does the patient need extra time in social situations, OR does s/he interact with staff, other patien ts, and family members ONLY in structured environments, OR does s/he require medication for social in teraction? Yes, patient needs extra time SOCIAL INTERACTION - SCORE: 6-NASIM PROBLEM SOLVING: PROBLEM SOLVING - STEP 1: Does the patient need help from a person or device, or need extra time to solve complex problems such as managing a checking account or confronting interpersonal problems? No. PROBLEM SOLVING - STEP 2: Does the patient require extra time to make decisions or solve problems, OR does s/he have slight dif ficulty reading, initiating, or self-correcting in unfamiliar situations? Yes, patient needs extra ti me. PROBLEM SOLVING - SCORE: 6-NASIM MEMORY: MEMORY - STEP 1: Does the patient need help from a person or device, or need extra time to remember frequently encount ered people, daily routines, and executing requests? No. MEMORY - STEP 2: Does the patient have slight difficulty recognizing frequently encountered people, daily routines, or executing requests without the need for repetition or using self-initiated or environmental cues to remember? Yes. MEMORY - SCORE: 6-NASIM
[2018-11-10] MEDS: ENOXAPARIN 40 MG/0.4 ML SQ SCH (06:48)
[2018-11-10] MEDS: PROMOD 30 ML DOSE PO SCH (08:00)
--- NOTE | 2018-11-10 13:33 | FAST ---
SHIFT START DATE/TIME: 11/10/2018 07:00 (CDT) SHIFT END DATE/TIME: 11/10/2018 19:00 (CDT) NAME HELADIO OTOOLE DATE OF : 1945 DATE OF ADMISSION: 11/04/2018 13:52 (CDT) PHONE: AGE: 72 SSN# [id number] GENDER: Male ENCOUNTER PHYSICIAN: Dr. Kenneth Zaragoza M.D. ADMISSION DIAGNOSIS: - Orthopaedic Disorders 08 - Unilateral Hip Fracture (11.01) Closed, displaced intertrochanteric right hip fx. EATING: EATING - STEP 1: Does the patient require the assistance of a person or device, or need extra time when eating? Yes. EATING - STEP 2: Does the patient require the assistance of a helper? No, patient only requires an assistive device, O R s/he takes more than reasonable time to eat, OR there is a safety concern, OR s/he requires modifie d food consistency EATING - SCORE: 6-NASIM GROOMING: Comb/brush hair Oral care GROOMING - STEP 1: Does the patient require the assistance of a person or device, or need extra time when grooming? No. GROOMING - SCORE: 7-IND BATHING: Activity did not occur on this shift BATHING - SCORE: 0-UNK DRESSING - UPPER BODY: Activity did not occur on this shift ARTICLES SCORE Total number of steps: 0 DRESSING - UPPER BODY - SCORE: 0-UNK DRESSING - LOWER BODY: Activity did not occur on this shift ARTICLES SCORE Total number of steps: 0 DRESSING - LOWER BODY - SCORE: 0-UNK TOILETING: TOILETING - STEP 1: Does the patient require the assistance of a person or device, or need extra time with toileting? Yes . TOILETING - STEP 2: Does the patient require the assistance of a helper? No. TOILETING - SCORE: 6-NASIM BLADDER MANAGEMENT: BLADDER MANAGEMENT - STEP 1: Does the patient control the bladder completely and intentionally without equipment or devices or med ications, and is always continent? No. BLADDER MANAGEMENT - STEP 2: Does the patient require the assistance of a helper? No, patient requires and independently uses an a ssistive device, such as a urinal, bedpan, bedside commode, catheter, absorbent pad, or collecting de vice BLADDER MANAGEMENT - SCORE: 6-NASIM BOWEL MANAGEMENT: Activity did not occur on this shift BOWEL MANAGEMENT - SCORE: 7-IND TRANSFERS: BED, CHAIR, WHEELCHAIR: TRANSFERS: BED, CHAIR, WHEELCHAIR - STEP 1: Does the patient require assistance of a person or device, or need extra time with bed, chair, or whe elchair transfers? Yes. TRANSFERS: BED, CHAIR, WHEELCHAIR - STEP 2: Does the patient require the assistance of a helper? No. Patient only requires an assistive device fo r bed, chair, wheelchair transfers such as a sliding board, grab bar, or brace, OR s/he takes more th an reasonable time, OR there is a safety concern when s/he performs the transfers TRANSFERS: BED, CHAIR, WHEELCHAIR - SCORE: 6-NASIM TRANSFERS: TOILET: TRANSFERS: TOILET - STEP 1: Does the patient require the assistance of a person or device, or need extra time with toilet transfe rs? Yes. TRANSFERS: TOILET - STEP 2: Does the patient require the assistance of a helper? No. Patient only requires an assistive device feliciano ch as a grab bar or special seat, OR s/he takes more than reasonable time to perform toilet transfers , OR there is a safety concern when s/he performs toilet transfers. TRANSFERS: TOILET - SCORE: 6-NASIM TRANSFERS: SHOWER: Activity did not occur on this shift TRANSFERS: SHOWER - SCORE: 0-UNK TRANSFERS: TUB: Activity did not occur on this shift TRANSFERS: TUB - SCORE: 0-UNK LOCOMOTION: WALK: Activity did not occur on this shift LOCOMOTION: WALK - SCORE: 0-UNK LOCOMOTION: WHEELCHAIR: Activity did not occur on this shift LOCOMOTION: WHEELCHAIR - SCORE: 0-UNK COMPREHENSION: COMPREHENSION: TYPE: Both COMPREHENSION - STEP 1: Does the patient require help from a person or device, or need extra time to understand complex and a bstract ideas (such as current events, finances, discharge planning, medical issues, relationships, e tc)? No. COMPREHENSION - STEP 2: Does the patient need extra time, require an assistive device (such as glasses for visual comprehensi on or a hearing aid for auditory comprehension) or does s/he have mild difficulty understanding compl ex and abstract information? No. COMPREHENSION - SCORE: 7-IND EXPRESSION EXPRESSION: TYPE: Both EXPRESSION - STEP 1: Does the patient require help from a person or device, or need extra time expressing complex and abst ract ideas (such as current events, finances, discharge planning, medical issues, relationships, etc) ? No. EXPRESSION - STEP 2: Does the patient need extra time, require an assistive device (such as augmentive communication syste m or a communication board), OR does s/he have mild difficulty expressing complex and abstract ideas (including mild dysarthria or mild word-find problems)? No. EXPRESSION - SCORE: 7-IND SOCIAL INTERACTION: SOCIAL INTERACTION - STEP 1: Does the patient require a helper to interact with others in social and therapeutic situations? No. SOCIAL INTERACTION - STEP 2: Does the patient need extra time in social situations, OR does s/he interact with staff, other patien ts, and family members ONLY in structured environments, OR does s/he require medication for social in teraction? No. SOCIAL INTERACTION - SCORE: 7-IND PROBLEM SOLVING: PROBLEM SOLVING - STEP 1: Does the patient need help from a person or device, or need extra time to solve complex problems such as managing a checking account or confronting interpersonal problems? No. PROBLEM SOLVING - STEP 2: Does the patient require extra time to make decisions or solve problems, OR does s/he have slight dif ficulty reading, initiating, or self-correcting in unfamiliar situations? No. PROBLEM SOLVING - SCORE: 7-IND MEMORY: MEMORY - STEP 1: Does the patient need help from a person or device, or need extra time to remember frequently encount ered people, daily routines, and executing requests? No. MEMORY - STEP 2: Does the patient have slight difficulty recognizing frequently encountered people, daily routines, or executing requests without the need for repetition or using self-initiated or environmental cues to remember? No. MEMORY - SCORE: 7-IND SIGNATURE PANEL: The following modified sections: Eating - Score, Grooming - Score, Bathing - Score, Dressing - Upper Body - Score, Dressing - Lower Body - Score, Toileting - Score, Bladder Management - Score, Bowel Man agement - Score, Transfers: Bed, Chair, Wheelchair - Score, Transfers: Toilet - Score, Transfers: Lillian wer - Score, Transfers: Tub - Score, Locomotion: Walk - Score, Locomotion: Wheelchair - Score, Compre hension - Score, Expression - Score, Social Interaction - Score, Problem Solving - Score, Memory - Sc ore were [electronically] signed by Aurelio Balderas on FriNov 10 2018 13:31:44 T-0500 (Central Daylight Time)
--- NOTE | 2018-11-10 15:23 | FAST ---
ENCOUNTER DATE AND TIME: 11/10/2018 08:00 (CDT) NAME HELADIO OTOOLE DATE OF : 1945 DATE OF ADMISSION: 11/04/2018 13:52 (CDT) PHONE: AGE: 72 SSN# [id number] GENDER: Male ENCOUNTER PHYSICIAN: Dr. Kenneth Zaragoza M.D. ADMISSION DIAGNOSIS: - Orthopaedic Disorders 08 - Unilateral Hip Fracture (11.01) Closed, displaced intertrochanteric right hip fx. EATING: Activity did not occur on this shift EATING - SCORE: 0-UNK GROOMING: Activity did not occur on this shift GROOMING - SCORE: 0-UNK BATHING: Activity did not occur on this shift BATHING - SCORE: 0-UNK DRESSING - UPPER BODY: Activity did not occur on this shift Patient is not dressing in public clothing ARTICLES SCORE Total number of steps: 0 DRESSING - UPPER BODY - SCORE: 0-UNK DRESSING - LOWER BODY: Activity did not occur on this shift Patient is not dressing in public clothing ARTICLES SCORE Total number of steps: 0 DRESSING - LOWER BODY - SCORE: 0-UNK TOILETING: Activity did not occur on this shift TOILETING - SCORE: 0-UNK BLADDER MANAGEMENT: Activity did not occur on this shift BLADDER MANAGEMENT - SCORE: 7-IND BOWEL MANAGEMENT: Activity did not occur on this shift BOWEL MANAGEMENT - SCORE: 7-IND TRANSFERS: BED, CHAIR, WHEELCHAIR: TRANSFERS: BED, CHAIR, WHEELCHAIR - STEP 1: Does the patient require assistance of a person or device, or need extra time with bed, chair, or whe elchair transfers? Yes. TRANSFERS: BED, CHAIR, WHEELCHAIR - STEP 2: Does the patient require the assistance of a helper? No. Patient only requires an assistive device fo r bed, chair, wheelchair transfers such as a sliding board, grab bar, or brace, OR s/he takes more th an reasonable time, OR there is a safety concern when s/he performs the transfers TRANSFERS: BED, CHAIR, WHEELCHAIR - SCORE: 6-NASIM TRANSFERS: TOILET: Activity did not occur on this shift TRANSFERS: TOILET - SCORE: 0-UNK TRANSFERS: SHOWER: Activity did not occur on this shift TRANSFERS: SHOWER - SCORE: 0-UNK TRANSFERS: TUB: Activity did not occur on this shift TRANSFERS: TUB - SCORE: 0-UNK LOCOMOTION: WALK: LOCOMOTION: WALK - STEP 1: Does the patient need help from a person or device, or need extra time to walk 150 feet? No. LOCOMOTION: WALK - STEP 2: Does the patient need an assistive device (such as an orthosis, prosthesis, crutches, or walker) to g o 150 feet, OR does s/he take more than reasonable time, OR is there a concern for safety? Yes, the p atient needs an assistive device LOCOMOTION: WALK - SCORE: 6-NASIM LOCOMOTION: WHEELCHAIR: Activity did not occur on this shift LOCOMOTION: WHEELCHAIR - SCORE: 0-UNK LOCOMOTION: STAIRS: LOCOMOTION: STAIRS - STEP 1: Does the patient need help to go up and down 12 to 14 stairs? No. LOCOMOTION: STAIRS - STEP 2: Does the patient require an assistive device - such as handrails or cane - to go up and down one flig ht of stairs, OR does s/he take more than reasonable time, OR is there a concern for safety? Yes, the patient requires an assistive device LOCOMOTION: STAIRS - SCORE: 6-NASIM COMPREHENSION: COMPREHENSION - SCORE: 0-UNK EXPRESSION EXPRESSION - SCORE: 0-UNK SOCIAL INTERACTION: SOCIAL INTERACTION - SCORE: 0-UNK PROBLEM SOLVING: PROBLEM SOLVING - SCORE: 0-UNK MEMORY: MEMORY - SCORE: 0-UNK SIGNATURE PANEL: The following modified sections: Transfers: Bed, Chair, Wheelchair - Score, Transfers: Toilet - Score , Locomotion: Walk - Score, Locomotion: Wheelchair - Score, Locomotion: Stairs - Score were [electron orin] signed by Richard Donald PTA on FriNov 10 2018 15:22:29 T-0500 (Central Daylight Time)
== END 2018-11-10 13:55 | disposition home or self-care (01) | DRG 561 ==
LOC: 5TH 11-04 13:52
PROVIDERS: ADMIT Psychiatry & Neurology Neurology with Special Qualifications in Child Neurology; ATTEND Psychiatry & Neurology Neurology with Special Qualifications in Child Neurology
DX: S72.141D Displaced intertrochanteric fracture of right femur, subsequent encounter for closed fracture with routine healing (principal); I10 Essential (primary) hypertension; E11.9 Type 2 diabetes mellitus without complications
CPT/HCPCS: 36415; 80048; 82040; 83735; 84134; 85025; 97110; 97112; 97116; 97163; 97530; J1650